=== PATIENT | male | born 1960 | race African-American/Black ===

== ENCOUNTER 2017-12-31 09:56 | Emergency (ER) | payer MEDICAID, OTHER ==
[~2017-12-31] VITALS: Ht 175.3 cm; Wt 91.0 kg
[~2017-12-31 09:56] MED LIST: CARI350T27 PO; ETAN50DI3 SQ; FOLI-43 PO; HYDR-3515 PO; HYDR200T PO; HYDR25TA PO; METH2.5T PO; OXYC30TA89 PO; PRED5TAB PO; SIMV20TA6 PO
[2017-12-31] MEDS ORDERED: ASPIRIN 81MG TABLET PO STA (11:17)
[2017-12-31] MEDS: NITROGLYCERIN 0.4MG TABLET SL SL PRN ×2 (11:33→11:37)
[2017-12-31 11:37] LABS: HEMATOCRIT. 42.3 % (42.0-52.0); HEMOGLOBIN. 14.3 g/dL (14.0-18.0); MEAN CORPUSCULAR HEMOGLOBIN 29.9 pg (28.0-32.0); MEAN CORPUSCULAR VOLUME 88.3 fL (80.0-94.0); MEAN PLATELET VOLUME 7.9 fl (7.4-10.4); PLATELET 198 x1000/uL (130-400); RED BLOOD CELL COUNT 4.78 mill/uL (4.7-6.1); RED CELL DISTRIBUTION WIDTH 13.2 % (11.6-14.6)
[2017-12-31] MEDS ORDERED: KETOROLAC 15MG/ML VIAL IV ONE (11:45)
[2017-12-31 11:46] LABS: CARBON DIOXIDE 27 mEq/L (21-32); CHLORIDE 103 mEq/L (98-107); D-DIMER 0.24 mg/L FEU (<0.50); PROTHROMBIN TIME 10.8 sec (9.4-11.6)
[2017-12-31 11:52] LABS: TROPONIN I < 0.02 ng/mL (0.00-0.04)
[2017-12-31 12:26] LABS: PLATELET ESTIMATE NORMAL
[2017-12-31 12:49] VITALS: BP 142/95
[2017-12-31] MEDS ORDERED: HYDROCODONE/ACETAMINOPHEN 5/325MG TABLET PO PRN (15:00)
[2017-12-31] MEDS ORDERED: IPRATROPIUM/ALBUTEROL 0.5-3(2.5)MG/3ML NEB HHN PRN (15:00)
[2017-12-31] MEDS ORDERED: AMLODIPINE 10MG TABLET PO SCH (15:00)
[2017-12-31] MEDS ORDERED: DEXTROSE 50% WATER 50ML SYRINGE IV PRN (15:00)
[2017-12-31] MEDS ORDERED: BLOOD SUGAR DIAGNOSTIC STRIP TEST SCH (17:00)
[2017-12-31] MEDS ORDERED: INSULIN LISPRO 100 UNITS/ML SUBCUT SCH (18:20)
[2017-12-31] MEDS ORDERED: ATORVASTATIN CALCIUM 20MG TABLET PO SCH (21:00)
[2018-01-01] MEDS ORDERED: ASPIRIN 81MG TABLET PO SCH (09:00)
== END 2017-12-31 15:29 | disposition left against medical advice (07) ==
LOC: ER 11:14 → EDBEDREQ 14:25 → CANRESERV 14:51 → ENRESERV 14:51 → ER 15:29 → CANBEDREQ 16:29
DX: R07.9 Chest pain, unspecified (principal); R07.89 Other chest pain; E11.9 Type 2 diabetes mellitus without complications; E78.00 Pure hypercholesterolemia, unspecified; I10 Essential (primary) hypertension; M06.9 Rheumatoid arthritis, unspecified; G47.30 Sleep apnea, unspecified; Z90.49 Acquired absence of other specified parts of digestive tract; Z88.5 Allergy status to narcotic agent
CPT/HCPCS: 36415; 71045; 80048; 83880; 84484; 85025; 85379; 85610; 85730; 87804; 93005; 96374; 99285; J1885; Z7610

== ENCOUNTER 2018-02-25 09:19 | Emergency (ER) | payer MEDICAID ==
[~2018-02-25] VITALS: Ht 175.3 cm; Wt 91.0 kg
[~2018-02-25 09:19] MED LIST changes: -HYDR200T PO; +HYDR200T80 PO
[2018-02-25] MEDS ORDERED: SODIUM CHLORIDE 0.9% 1,000 ML IV ONE (09:57)
[2018-02-25] MEDS ORDERED: INSULIN REGULAR (HUMULIN R) 300UNITS/3ML IV ONE (10:30)
[2018-02-25 10:37] LABS: HEMOGLOBIN. 14.1 g/dL (14.0-18.0); MEAN CORPUSCULAR HEMOGLOBIN 29.3 pg (28.0-32.0); MEAN CORPUSCULAR VOLUME 89.3 fL (80.0-94.0); MEAN PLATELET VOLUME 7.6 fl (7.4-10.4); PLATELET 210 x1000/uL (130-400); RED BLOOD CELL COUNT 4.82 mill/uL (4.7-6.1); RED CELL DISTRIBUTION WIDTH 13.5 % (11.6-14.6)
[2018-02-25 10:45] LABS: INR 1.1; PARTIAL THROMBOPLASTIN TIME 24.6 sec (23.4-31.0); PROTHROMBIN TIME 11.1 sec (9.4-11.6)
[2018-02-25] MEDS ORDERED: HYDROCODONE/ACETAMINOPHEN 5/325MG TABLET PO ONE (10:45)
[2018-02-25 10:47] LABS: CHLORIDE 102 mEq/L (98-107)
[2018-02-25 11:29] LABS: PLATELET ESTIMATE NORMAL
[2018-02-25 12:10] LABS: CLARITY URINE CLEAR (CLEAR); COLOR URINE YELLOW (YELLOW); KETONES URINE NEGATIVE (NEGATIVE); LEUKOCYTE ESTERASE URINE NEGATIVE (NEGATIVE); NITRITE URINE NEGATIVE (NEGATIVE); OCCULT BLOOD URINE NEGATIVE (NEGATIVE); PROTEIN URINE NEGATIVE (NEGATIVE); SPECIFIC GRAVITY URINE 1.032 (1.005-1.030); UROBILINOGEN URINE 0.2 E.U./dL (0.2-1.0)
[2018-02-25 13:16] VITALS: BP 141/81
[2018-02-26 11:47] LABS: *AMPHETAMINES SCREEN URINE NEGATIVE (NEGATIVE); *BARBITURATES SCREEN URINE NEGATIVE (NEGATIVE); *BENZODIAZEPINES SCREEN URINE NEGATIVE (NEGATIVE); *COCAINE SCREEN URINE NEGATIVE (NEGATIVE); CANNABINOID URINE SCREEN NEGATIVE (NEGATIVE); METHADONE URINE SCREEN NEGATIVE (NEGATIVE); OPIATES URINE SCREEN NEGATIVE (NEGATIVE); PHENCYCLIDINE URINE SCREEN NEGATIVE (NEGATIVE)
== END 2018-02-25 13:21 | disposition home or self-care (01) ==
LOC: ER 10:01
DX: E11.65 Type 2 diabetes mellitus with hyperglycemia (principal); I10 Essential (primary) hypertension; M54.9 Dorsalgia, unspecified; G89.29 Other chronic pain; E78.00 Pure hypercholesterolemia, unspecified; Z79.4 Long term (current) use of insulin; Z88.5 Allergy status to narcotic agent; R94.31 Abnormal electrocardiogram [ECG] [EKG]; I25.2 Old myocardial infarction
CPT/HCPCS: 36415; 80053; 80305; 81003; 82962; 83690; 85025; 85610; 85730; 93005; 96361; 96374; 99285; J1815; J7030; Z7610

== ENCOUNTER 2018-05-28 17:39 | Emergency (ER) | payer MEDICAID ==
[~2018-05-28] VITALS: Ht 175.3 cm; Wt 88.0 kg
[2018-05-28 18:55] LABS: BASOPHILS % 0.8 % (0.0-2.0); HEMATOCRIT. 41.8 % (42.0-52.0); HEMOGLOBIN. 13.9 g/dL (14.0-18.0); LYMPHOCYTES % 16.4 % (20.0-50.0); MEAN CORPUSCULAR HEMOGLOBIN 29.7 pg (28.0-32.0); MEAN PLATELET VOLUME 7.3 fl (7.4-10.4); MONOCYTES % 5.3 % (2.0-8.0); NEUTROPHILS % 77.5 % (40.0-76.0); PLATELET 238 x1000/uL (130-400); RED CELL DISTRIBUTION WIDTH 13.9 % (11.6-14.6)
[2018-05-28 19:00] LABS: CHLORIDE 105 mEq/L (98-107)
[2018-05-28 19:01] LABS: INR 1.1; PARTIAL THROMBOPLASTIN TIME 24.3 sec (23.4-31.0); PROTHROMBIN TIME 11.4 sec (9.4-11.6)
[2018-05-28] MEDS ORDERED: KETOROLAC 60MG/2ML VIAL IM ONE (22:00)
[2018-05-28] MEDS ORDERED: OXYCODONE HCL/ACETAMINOPHEN 5/325MG TABLET PO ONE (23:15)
[2018-05-28 23:24] VITALS: BP 156/93
== END 2018-05-28 23:37 | disposition home or self-care (01) ==
LOC: ER 17:39
DX: M54.12 Radiculopathy, cervical region (principal); R07.89 Other chest pain; I10 Essential (primary) hypertension; E11.9 Type 2 diabetes mellitus without complications; E78.00 Pure hypercholesterolemia, unspecified; Z88.5 Allergy status to narcotic agent
CPT/HCPCS: 36415; 71045; 72125; 80053; 82962; 83690; 84484; 85025; 85610; 85730; 93005; 96372; 99285; J1885

== ENCOUNTER 2018-11-28 11:01 | Emergency (ER) | payer MEDICAID ==
[~2018-11-28] VITALS: Ht 175.3 cm; Wt 91.0 kg
[2018-11-28] MEDS ORDERED: IBUPROFEN 600MG TABLET PO STA (12:19)
[2018-11-28 12:56] LABS: HEMATOCRIT. 44.7 % (42.0-52.0); MEAN CORPUSCULAR HEMOGLOBIN 29.8 pg (28.0-32.0); MEAN PLATELET VOLUME 7.8 fl (7.4-10.4); PLATELET 223 x1000/uL (130-400); RED BLOOD CELL COUNT 5.02 mill/uL (4.7-6.1); RED CELL DISTRIBUTION WIDTH 13.4 % (11.6-14.6)
[2018-11-28 13:00] LABS: CHLORIDE 103 mEq/L (98-107)
[2018-11-28 13:12] LABS: *AMPHETAMINES SCREEN URINE NEGATIVE (NEGATIVE); *BARBITURATES SCREEN URINE NEGATIVE (NEGATIVE); *BENZODIAZEPINES SCREEN URINE NEGATIVE (NEGATIVE); *COCAINE SCREEN URINE NEGATIVE (NEGATIVE); CANNABINOID URINE SCREEN NEGATIVE (NEGATIVE)
[2018-11-28 13:13] LABS: METHADONE URINE SCREEN NEGATIVE (NEGATIVE); OPIATES URINE SCREEN NEGATIVE (NEGATIVE); PHENCYCLIDINE URINE SCREEN NEGATIVE (NEGATIVE)
[2018-11-28 13:23] LABS: PLATELET ESTIMATE NORMAL
[2018-11-28] MEDS ORDERED: HYDROCODONE/ACETAMINOPHEN 5/325MG TABLET PO ONE (14:15)
[2018-11-28 15:10] VITALS: BP 140/90
== END 2018-11-28 15:15 | disposition home or self-care (01) ==
LOC: ER 11:01
DX: R07.9 Chest pain, unspecified (principal); M19.90 Unspecified osteoarthritis, unspecified site; E11.9 Type 2 diabetes mellitus without complications; E78.00 Pure hypercholesterolemia, unspecified; I10 Essential (primary) hypertension; Z90.89 Acquired absence of other organs; Z79.899 Other long term (current) drug therapy; Z88.5 Allergy status to narcotic agent
CPT/HCPCS: 36415; 71045; 80305; 84484; 93005; 99284

== ENCOUNTER 2020-04-26 03:32 | Emergency (ER) | payer MEDICAID ==
[~2020-04-26] VITALS: Ht 180.3 cm; Wt 107.0 kg
[~2020-04-26 03:32] MED LIST changes: +SIMV-43 PO; -SIMV20TA6 PO
[2020-04-26] MEDS ORDERED: KETOROLAC 60MG/2ML VIAL IM ONE (04:00)
[2020-04-26] MEDS ORDERED: PREDNISONE 20MG TABLET PO ONE (04:00)
[2020-04-26 05:35] VITALS: BP 144/75
== END 2020-04-26 05:36 | disposition home or self-care (01) ==
LOC: ER 03:32
DX: G89.29 Other chronic pain (principal); M54.9 Dorsalgia, unspecified; E11.9 Type 2 diabetes mellitus without complications; I10 Essential (primary) hypertension; E78.00 Pure hypercholesterolemia, unspecified; Z88.6 Allergy status to analgesic agent; Z79.899 Other long term (current) drug therapy; Z90.49 Acquired absence of other specified parts of digestive tract
CPT/HCPCS: 82962; 96372; 99283; J1885; J7512

== ENCOUNTER 2020-04-27 16:47 | Emergency (ER) | payer MEDICAID ==
[~2020-04-27] VITALS: Ht 175.3 cm; Wt 88.0 kg
[2020-04-27] MEDS ORDERED: SODIUM CHLORIDE 0.9% 1,000 ML IV ONE (18:05)
[2020-04-27] MEDS ORDERED: LORAZEPAM 1MG TABLET PO ONE (18:30)
[2020-04-27 18:46] LABS: CLARITY URINE CLEAR (CLEAR); COLOR URINE YELLOW (YELLOW); KETONES URINE TRACE (NEGATIVE); LEUKOCYTE ESTERASE URINE NEGATIVE (NEGATIVE); NITRITE URINE NEGATIVE (NEGATIVE); OCCULT BLOOD URINE NEGATIVE (NEGATIVE); PH URINE 5.5 (4.5-8.0); PROTEIN URINE TRACE (NEGATIVE); SPECIFIC GRAVITY URINE 1.023 (1.005-1.030); UROBILINOGEN URINE 0.2 E.U./dL (0.2-1.0)
[2020-04-27 19:03] LABS: METHADONE URINE SCREEN NEGATIVE (NEGATIVE); OPIATES URINE SCREEN NEGATIVE (NEGATIVE)
[2020-04-27 19:04] LABS: *AMPHETAMINES SCREEN URINE NEGATIVE (NEGATIVE); *BARBITURATES SCREEN URINE NEGATIVE (NEGATIVE); *BENZODIAZEPINES SCREEN URINE NEGATIVE (NEGATIVE); *COCAINE SCREEN URINE NEGATIVE (NEGATIVE); CANNABINOID URINE SCREEN NEGATIVE (NEGATIVE); PHENCYCLIDINE URINE SCREEN NEGATIVE (NEGATIVE)
[2020-04-27 19:17] LABS: BASOPHILS % 0.1 % (0.0-2.0); HEMATOCRIT. 45.9 % (42.0-52.0); HEMOGLOBIN. 15.1 g/dL (14.0-18.0); LYMPHOCYTES % 8.7 % (20.0-50.0); MEAN CORPUSCULAR HEMOGLOBIN 30.5 pg (28.0-32.0); MEAN CORPUSCULAR VOLUME 92.6 fL (80.0-94.0); MEAN PLATELET VOLUME 7.8 fl (7.4-10.4); MONOCYTES % 3.7 % (2.0-8.0); NEUTROPHILS % 87.5 % (40.0-76.0); PLATELET 166 x1000/uL (130-400); RED BLOOD CELL COUNT 4.96 mill/uL (4.7-6.1); RED CELL DISTRIBUTION WIDTH 14.3 % (11.6-14.6)
[2020-04-27 19:24] LABS: CHLORIDE 115 mEq/L (98-107)
[2020-04-27 19:28] LABS: ETHANOL BLOOD < 10 mg/dL
[2020-04-27 19:34] LABS: PROTHROMBIN TIME 10.9 sec (9.6-11.0)
[2020-04-27] MEDS ORDERED: FUROSEMIDE 40MG TABLET PO STA (19:40)
[2020-04-27] MEDS ORDERED: ONDANSETRON HCL 4MG/2ML INJ IV ONE (20:15)
[2020-04-27] MEDS ORDERED: MORPHINE SULFATE 4 MG/ML CPJ (NOT FOR IM USE) IV ONE (20:15)
[2020-04-27] MEDS ORDERED: DIPHENHYDRAMINE 25MG CAPSULE PO ONE (20:15)
[2020-04-27 21:56] VITALS: BP 154/98
== END 2020-04-27 21:59 | disposition home or self-care (01) ==
LOC: ER 16:47 → CANBEDREQ 22:48
DX: M54.5 Low back pain (principal); G89.29 Other chronic pain; E11.9 Type 2 diabetes mellitus without complications; I11.0 Hypertensive heart disease with heart failure; I50.9 Heart failure, unspecified; E78.00 Pure hypercholesterolemia, unspecified; G47.30 Sleep apnea, unspecified; M19.90 Unspecified osteoarthritis, unspecified site; Z88.5 Allergy status to narcotic agent; Z98.1 Arthrodesis status; Z90.49 Acquired absence of other specified parts of digestive tract
CPT/HCPCS: 36415; 71045; 80053; 80305; 80320; 81003; 83690; 83880; 84484; 85025; 85610; 85730; 93005; 96374; 96375; 99285; J2270; J2405; J7030; Q0163; G0480

== ENCOUNTER 2020-08-25 18:53 | Emergency (ER) | payer MEDICAID ==
[~2020-08-25] VITALS: Ht 175.3 cm; Wt 87.0 kg
[~2020-08-25 18:53] MED LIST changes: +CYAN500T47 PO; -HYDR25TA PO; +METF-816 PO; +ZOLP10TA2 PO
[2020-08-25 19:01] VITALS: BP 155/93
== END 2020-08-26 | disposition left against medical advice (07) ==
LOC: ER 18:53
DX: M54.9 Dorsalgia, unspecified (principal); I49.9 Cardiac arrhythmia, unspecified; Z53.21 Procedure and treatment not carried out due to patient leaving prior to being seen by health care provider
CPT/HCPCS: 93005

== ENCOUNTER 2020-09-03 15:57 | Inpatient (IN) | payer MEDICAID ==
[~2020-09-03] VITALS: Ht 175.3 cm; Wt 77.6 kg
[2020-09-03 16:55] LABS: HEMATOCRIT. 37.6 % (42.0-52.0); HEMOGLOBIN. 12.4 g/dL (14.0-18.0); MEAN CORPUSCULAR HEMOGLOBIN 31.2 pg (28.0-32.0); MEAN CORPUSCULAR VOLUME 94.4 fL (80.0-94.0); MEAN PLATELET VOLUME 8.6 fl (7.4-10.4); PLATELET 152 x1000/uL (130-400); RED BLOOD CELL COUNT 3.98 mill/uL (4.7-6.1)
[2020-09-03 17:01] LABS: CHLORIDE 109 mEq/L (98-107)
[2020-09-03 17:45] LABS: PLATELET ESTIMATE NORMAL
[2020-09-03] MEDS ORDERED: MORPHINE SULFATE 10 MG/ML CPJ IV NR (18:00)
[2020-09-03] MEDS ORDERED: DIPHENHYDRAMINE 50MG/ML VIAL IV NR (18:00)
[2020-09-03] MEDS ORDERED: POTASSIUM CHLORIDE 20MEQ TABLET SR PO NR (18:00)
[2020-09-03] MEDS ORDERED: FUROSEMIDE 40MG/4ML VIAL IVP NR (18:00)
[2020-09-03 22:30] VITALS: BP 154/86
[2020-09-03] MEDS ORDERED: ACETAMINOPHEN 325MG TABLET PO PRN (22:30)
[2020-09-03] MEDS ORDERED: DEXTROSE 50% WATER 50ML SYRINGE IV PRN ×3 (22:30)
[2020-09-04] VITALS: BP 141/86
[2020-09-04] MEDS: DIPHENHYDRAMINE 50MG/ML VIAL IV PRN ×2 (00:49→08:06)
[2020-09-04] MEDS: MORPHINE SULFATE 2 MG/ML CPJ (NOT FOR IM USE) IV PRN ×4 (00:54→21:00)
[2020-09-04 04:00] VITALS: BP 139/70
[2020-09-04 05:48] LABS: CHLORIDE 111 mEq/L (98-107)
[2020-09-04 05:58] LABS: CREATINE KINASE 93 IU/L (39-308)
[2020-09-04 05:59] LABS: CREATINE KINASE MB FRACTION 2.1 ng/mL (0.5-3.6)
[2020-09-04] MEDS: BLOOD SUGAR DIAGNOSTIC STRIP TEST SCH ×4 (06:06→21:04)
[2020-09-04] MEDS: INSULIN LISPRO 100 UNITS/ML SUBCUT SCH ×4 (06:08→21:04)
[2020-09-04 06:13] LABS: HEMOGLOBIN 13.2 g/dL (14.0-18.0); MEAN CORPUSCULAR HEMOGLOBIN 31.2 pg (28.0-32.0); MEAN CORPUSCULAR VOLUME 94.4 fL (80.0-94.0); PLATELET 147 x1000/uL (130-400); RED BLOOD CELL COUNT 4.24 mill/uL (4.7-6.1); RED CELL DISTRIBUTION WIDTH 14.2 % (11.6-14.6)
[2020-09-04 08:00] VITALS: BP 158/100
[2020-09-04] MEDS ORDERED: FUROSEMIDE 40MG/4ML VIAL IVP SCH (09:00)
[2020-09-04] MEDS ORDERED: PNEUMOC 13-VAL CONJ-DIP CRM/PF 0.5 ML DISP.SYRIN IM ONE (11:00)
[2020-09-04 12:00] VITALS: BP 158/100
[2020-09-04 16:00] VITALS: BP 150/99
[2020-09-04] MEDS ORDERED: POTASSIUM CHLORIDE 20MEQ TABLET SR PO NR (17:30)
[2020-09-04] MEDS ORDERED: POTASSIUM CHLORIDE INJ 40 MEQ in DEXT 5% WATER 250 ML IV NR (18:00)
[2020-09-04] MEDS: ASPIRIN 81MG EC TABLET PO SCH (18:06)
[2020-09-04] MEDS: PREDNISONE 20MG TABLET PO SCH (18:06)
[2020-09-04] MEDS: ENOXAPARIN 40MG/0.4ML SYR SUBCUT SCH (18:13)
[2020-09-04] MEDS: FUROSEMIDE 40MG/4ML VIAL IVP SCH (20:52)
[2020-09-04] MEDS: CARVEDILOL 6.25 MG TABLET PO SCH (20:57)
[2020-09-04 21:00] VITALS: BP 143/92
[2020-09-05] VITALS (7 sets, daily range): BP systolic 138–162; BP diastolic 80–109
[2020-09-05 02:09] LABS: *AMPHETAMINES SCREEN URINE NEGATIVE (NEGATIVE); *BARBITURATES SCREEN URINE NEGATIVE (NEGATIVE); *BENZODIAZEPINES SCREEN URINE NEGATIVE (NEGATIVE); *COCAINE SCREEN URINE NEGATIVE (NEGATIVE); CANNABINOID URINE SCREEN NEGATIVE (NEGATIVE); PHENCYCLIDINE URINE SCREEN NEGATIVE (NEGATIVE)
[2020-09-05 02:10] LABS: METHADONE URINE SCREEN NEGATIVE (NEGATIVE); OPIATES URINE SCREEN PRESUMTIVE POSITIVE (NEGATIVE)
[2020-09-05] MEDS: MORPHINE SULFATE 2 MG/ML CPJ (NOT FOR IM USE) IV PRN ×3 (02:52→20:58)
[2020-09-05 06:07] LABS: BASOPHILS % 0.1 % (0.0-2.0); HEMATOCRIT. 37.7 % (42.0-52.0); HEMOGLOBIN. 12.6 g/dL (14.0-18.0); LYMPHOCYTES % 8.4 % (20.0-50.0); MEAN CORPUSCULAR HEMOGLOBIN 31.3 pg (28.0-32.0); MEAN CORPUSCULAR VOLUME 93.2 fL (80.0-94.0); MEAN PLATELET VOLUME 8.9 fl (7.4-10.4); MONOCYTES % 4.1 % (2.0-8.0); NEUTROPHILS % 87.4 % (40.0-76.0); PLATELET 158 x1000/uL (130-400); RED BLOOD CELL COUNT 4.04 mill/uL (4.7-6.1); RED CELL DISTRIBUTION WIDTH 14.1 % (11.6-14.6)
[2020-09-05 06:09] LABS: CHLORIDE 106 mEq/L (98-107)
[2020-09-05] MEDS: BLOOD SUGAR DIAGNOSTIC STRIP TEST SCH ×4 (07:16→21:15)
[2020-09-05] MEDS: INSULIN LISPRO 100 UNITS/ML SUBCUT SCH ×4 (07:16→21:14)
[2020-09-05] MEDS: FUROSEMIDE 40MG/4ML VIAL IVP SCH ×2 (09:43→20:56)
[2020-09-05] MEDS: ASPIRIN 81MG EC TABLET PO SCH (09:59)
[2020-09-05] MEDS: CARVEDILOL 6.25 MG TABLET PO SCH ×2 (10:00→20:56)
[2020-09-05] MEDS: PREDNISONE 20MG TABLET PO SCH (10:00)
[2020-09-05] MEDS: LOSARTAN POTASSIUM 25 MG TABLET PO SCH (14:01)
[2020-09-05] MEDS ORDERED: OXYCODONE HCL 20MG TABLET SR 12HR PO PRN (14:15)
[2020-09-05] MEDS ORDERED: LACTULOSE 20G/30ML UDC PO PRN (14:15)
[2020-09-05] MEDS: ONDANSETRON HCL 4MG/2ML INJ IV PRN (14:24)
[2020-09-05] MEDS: OXYCODONE HCL 10MG TABLET SR 12HR PO SCH (14:25)
[2020-09-05] MEDS: ENOXAPARIN 40MG/0.4ML SYR SUBCUT SCH (17:23)
[2020-09-06] VITALS: BP 144/78
[2020-09-06] MEDS: OXYCODONE HCL 10MG TABLET SR 12HR PO SCH ×3 (00:35→21:00)
[2020-09-06] MEDS: ONDANSETRON HCL 4MG/2ML INJ IV PRN (00:38)
[2020-09-06 04:00] VITALS: BP 168/98
[2020-09-06] MEDS: BLOOD SUGAR DIAGNOSTIC STRIP TEST SCH ×4 (06:11→20:31)
[2020-09-06] MEDS: INSULIN LISPRO 100 UNITS/ML SUBCUT SCH ×5 (06:33→20:39)
[2020-09-06] MEDS: MORPHINE SULFATE 2 MG/ML CPJ (NOT FOR IM USE) IV PRN ×2 (06:59→20:13)
[2020-09-06 07:44] LABS: BASOPHILS % 0.2 % (0.0-2.0); EOSINOPHILS % 0.7 % (0.0-5.0); HEMOGLOBIN. 13.4 g/dL (14.0-18.0); LYMPHOCYTES % 18.1 % (20.0-50.0); MEAN CORPUSCULAR HEMOGLOBIN 31.1 pg (28.0-32.0); MEAN CORPUSCULAR VOLUME 92.9 fL (80.0-94.0); MEAN PLATELET VOLUME 8.6 fl (7.4-10.4); PLATELET 162 x1000/uL (130-400)
[2020-09-06 07:52] LABS: CHLORIDE 106 mEq/L (98-107)
[2020-09-06 08:30] VITALS: BP 157/97
[2020-09-06] MEDS: PREDNISONE 20MG TABLET PO SCH (09:23)
[2020-09-06] MEDS ORDERED: POTASSIUM CHLORIDE 20MEQ/PACKET PO SCH (09:24)
[2020-09-06] MEDS: CARVEDILOL 6.25 MG TABLET PO SCH ×2 (09:25→20:14)
[2020-09-06] MEDS: ASPIRIN 81MG EC TABLET PO SCH (09:26)
[2020-09-06] MEDS: LOSARTAN POTASSIUM 25 MG TABLET PO SCH (09:27)
[2020-09-06] MEDS: FUROSEMIDE 40MG/4ML VIAL IVP SCH ×3 (09:27→21:00)
[2020-09-06 12:00] VITALS: BP 148/92
[2020-09-06 16:04] VITALS: BP 156/95
[2020-09-06] MEDS: ENOXAPARIN 40MG/0.4ML SYR SUBCUT SCH (17:46)
[2020-09-06 20:00] VITALS: BP 159/98
[2020-09-06] MEDS ORDERED: CARVEDILOL 6.25 MG TABLET PO NR (21:26)
[2020-09-06] MEDS ORDERED: POTASSIUM CHLORIDE 20MEQ TABLET SR PO NR (21:34)
[2020-09-06] MEDS ORDERED: METOLAZONE 2.5MG TABLET PO NR (22:00)
[2020-09-07] VITALS: BP 153/102
[2020-09-07] MEDS: MORPHINE SULFATE 2 MG/ML CPJ (NOT FOR IM USE) IV PRN ×2 (01:26→06:02)
[2020-09-07 04:00] VITALS: BP 162/91
[2020-09-07 06:16] LABS: CHLORIDE 105 mEq/L (98-107)
[2020-09-07] MEDS: BLOOD SUGAR DIAGNOSTIC STRIP TEST SCH ×3 (07:30→13:37)
[2020-09-07] MEDS ORDERED: CARVEDILOL 12.5MG TABLET PO SCH ×2 (09:00→13:09)
[2020-09-07] MEDS: FUROSEMIDE 40MG/4ML VIAL IVP SCH (09:00)
[2020-09-07] MEDS ORDERED: LOSARTAN POTASSIUM 25 MG TABLET PO SCH ×2 (09:00→21:00)
[2020-09-07] MEDS: ASPIRIN 81MG EC TABLET PO SCH (10:00)
[2020-09-07] MEDS: PREDNISONE 20MG TABLET PO SCH (10:01)
[2020-09-07] MEDS: INSULIN LISPRO 100 UNITS/ML SUBCUT SCH ×2 (10:11→13:35)
[2020-09-07] MEDS: ONDANSETRON HCL 4MG/2ML INJ IV PRN (10:14)
[2020-09-07] MEDS: OXYCODONE HCL 10MG TABLET SR 12HR PO SCH ×2 (10:16→12:55)
[2020-09-07 10:54] VITALS: BP 167/109
[2020-09-07 12:00] VITALS: BP 141/93
[2020-09-07 13:05] VITALS: BP 141/93
[2020-09-07] MEDS ORDERED: COR12 PO (14:01)
[2020-09-07] MEDS ORDERED: LOSA50TA41 MT (14:01)
[2020-09-07] MEDS ORDERED: LOSA25TA3 PO (14:01)
[2020-09-07] MEDS ORDERED: CARV12.545 MT (14:01)
[2020-09-07 14:12] VITALS: BP 141/93
[2020-10-01] MEDS ORDERED: LOSA25TA26 PO (01:21)
[2020-10-01] MEDS ORDERED: FURO-151 PO (01:23)
[2020-10-02] MEDS ORDERED: BRIMONIDINE BOTHEYE (11:24)
== END 2020-09-07 14:35 | disposition home or self-care (01) | DRG 194 ==
LOC: ER 15:57 → 8WST 18:26 → ENRESERV 20:33 → 5EST 09-06 22:10
PROVIDERS: ADMIT Internal Medicine; ATTEND Internal Medicine
DX: I11.0 Hypertensive heart disease with heart failure (principal); I50.23 Acute on chronic systolic (congestive) heart failure; I42.9 Cardiomyopathy, unspecified; E78.5 Hyperlipidemia, unspecified; M48.02 Spinal stenosis, cervical region; E66.01 Morbid (severe) obesity due to excess calories; E78.00 Pure hypercholesterolemia, unspecified; M06.9 Rheumatoid arthritis, unspecified; G89.4 Chronic pain syndrome; F11.20 Opioid dependence, uncomplicated; E11.9 Type 2 diabetes mellitus without complications; D72.829 Elevated white blood cell count, unspecified; I36.1 Nonrheumatic tricuspid (valve) insufficiency; Z88.5 Allergy status to narcotic agent; Z79.899 Other long term (current) drug therapy; Z79.84 Long term (current) use of oral hypoglycemic drugs; Z90.49 Acquired absence of other specified parts of digestive tract; Z68.25 Body mass index [BMI] 25.0-25.9, adult; R07.89 Other chest pain; R65.10 Systemic inflammatory response syndrome (SIRS) of non-infectious origin without acute organ dysfunction
CPT/HCPCS: 36415; 71045; 80048; 80053; 80305; 82550; 82553; 82962; 83036; 83735; 83880; 84484; 85025; 85027; 90670; 93005; 97162; 99285; J1200; J1650; J1815; J1940; J2270; J2405; J3480; J7060; J7512

== ENCOUNTER 2020-11-19 21:54 | Emergency (ER) | payer MEDICAID ==
[~2020-11-19] VITALS: Ht 175.3 cm; Wt 100.0 kg
[~2020-11-19 21:54] MED LIST changes: +BRIMONIDINE BOTHEYE; +COR12 PO; -ETAN50DI3 SQ; +FURO-151 PO; +LOSA25TA26 PO; -METH2.5T PO
[2020-11-19] MEDS ORDERED: MORPHINE SULFATE 4 MG/ML CPJ (NOT FOR IM USE) IV STA (22:36)
[2020-11-19] MEDS ORDERED: FUROSEMIDE 40MG/4ML VIAL IVP ONE (22:45)
[2020-11-20 00:13] LABS: BASOPHILS % 0.4 % (0.0-2.0); HEMATOCRIT. 37.4 % (42.0-52.0); HEMOGLOBIN. 12.5 g/dL (14.0-18.0); LYMPHOCYTES % 7.5 % (20.0-50.0); MEAN CORPUSCULAR VOLUME 92.8 fL (80.0-94.0); MEAN PLATELET VOLUME 8.3 fl (7.4-10.4); MONOCYTES % 3.8 % (2.0-8.0); NEUTROPHILS % 88.3 % (40.0-76.0); PLATELET 195 x1000/uL (130-400); RED BLOOD CELL COUNT 4.02 mill/uL (4.7-6.1)
[2020-11-20 00:20] LABS: CHLORIDE 116 mEq/L (98-107)
[2020-11-20 03:00] VITALS: BP 163/99
[2020-11-20] MEDS ORDERED: ACETAMINOPHEN 325MG TABLET PO PRN ×2 (11:15)
[2020-11-20] MEDS ORDERED: CLONIDINE 0.1MG TABLET PO PRN (11:15)
[2020-11-20] MEDS ORDERED: ACETAMINOPHEN 650MG/20.3ML UDC GT PRN ×2 (11:15)
[2020-11-20] MEDS ORDERED: ONDANSETRON HCL 4MG/2ML INJ IV PRN (11:15)
[2020-11-20] MEDS ORDERED: ACETAMINOPHEN 650MG SUPP PR PRN ×2 (11:15)
[2020-11-20] MEDS ORDERED: FUROSEMIDE 40MG/4ML VIAL IV SCH (11:15)
[2020-11-20] MEDS ORDERED: DIPHENHYDRAMINE 50MG/ML VIAL IV PRN (11:15)
[2020-11-20] MEDS ORDERED: NA PHOS,M-B/NA PHOS,DI-BA ENEMA 118ML PR PRN (11:15)
[2020-11-20] MEDS ORDERED: MAGNESIUM/ALUMINUM HYDROXIDE/SIMETHICONE 30ML UDC PO PRN (11:15)
== END 2020-11-20 04:20 | disposition left against medical advice (07) ==
LOC: ER 22:22 → EDBEDREQ 11-20 02:25 → EDBEDREQTM 11-20 02:25 → EDBEDREQDT 11-20 02:25 → ER 11-20 04:20 → CMPBEDREQ 11-20 04:20
DX: I50.9 Heart failure, unspecified (principal); Z98.890 Other specified postprocedural states; Z79.899 Other long term (current) drug therapy
CPT/HCPCS: 36415; 71045; 80053; 83880; 84484; 85025; 93005; 96374; 96375; 99285; J1940; J2270

== ENCOUNTER 2021-03-02 17:18 | Inpatient (IN) | payer MEDICAID ==
[~2021-03-02] VITALS: Ht 175.3 cm; Wt 70.0 kg
[~2021-03-02 17:18] MED LIST changes: -METF-816 PO; +METF-874 PO; +OXYC-582 PO; -OXYC30TA89 PO
[2021-03-02] MEDS ORDERED: ASPIRIN 325MG EC TABLET PO ONE (17:30)
[2021-03-02 18:07] LABS: BASOPHILS % 0.8 % (0.0-2.0); EOSINOPHILS % 3.3 % (0.0-5.0); HEMATOCRIT. 35.4 % (42.0-52.0); HEMOGLOBIN. 11.2 g/dL (14.0-18.0); LYMPHOCYTES % 29.6 % (20.0-50.0); MEAN CORPUSCULAR HEMOGLOBIN 26.9 pg (28.0-32.0); MEAN CORPUSCULAR VOLUME 84.8 fL (80.0-94.0); MEAN PLATELET VOLUME 7.4 fl (7.4-10.4); MONOCYTES % 10.8 % (2.0-8.0); NEUTROPHILS % 55.5 % (40.0-76.0); PLATELET 314 x1000/uL (130-400); RED BLOOD CELL COUNT 4.18 mill/uL (4.7-6.1); RED CELL DISTRIBUTION WIDTH 15.7 % (11.6-14.6)
[2021-03-02 18:10] LABS: CHLORIDE 105 mEq/L (98-107)
[2021-03-02 19:27] LABS: CLARITY URINE CLEAR (CLEAR); COLOR URINE YELLOW (YELLOW); KETONES URINE TRACE (NEGATIVE); LEUKOCYTE ESTERASE URINE NEGATIVE (NEGATIVE); NITRITE URINE NEGATIVE (NEGATIVE); OCCULT BLOOD URINE NEGATIVE (NEGATIVE); PROTEIN URINE TRACE (NEGATIVE); SPECIFIC GRAVITY URINE 1.016 (1.005-1.030)
[2021-03-02] MEDS ORDERED: MORPHINE SULFATE 4 MG/ML CPJ (NOT FOR IM USE) IV STA (21:21)
[2021-03-02] MEDS ORDERED: ONDANSETRON HCL 4MG/2ML INJ IV STA (21:21)
[2021-03-02] MEDS ORDERED: FUROSEMIDE 40MG/4ML VIAL IVP NR (23:00)
[2021-03-02 23:52] VITALS: BP 100/67
[2021-03-03] VITALS (11 sets, daily range): BP systolic 96–140; BP diastolic 65–79
[2021-03-03] MEDS ORDERED: NITROGLYCERIN 0.4MG TABLET SL SL PRN (01:00)
[2021-03-03] MEDS ORDERED: DEXTROSE 50% WATER 50ML SYRINGE IV PRN (01:00)
[2021-03-03] MEDS: HYDROCODONE/ACETAMINOPHEN 10/325MG TABLET PO PRN (02:16)
[2021-03-03 02:29] LABS: CREATINE KINASE 63 IU/L (39-308)
[2021-03-03 02:30] LABS: CREATINE KINASE MB FRACTION 1.8 ng/mL (0.5-3.6)
[2021-03-03] MEDS: BLOOD SUGAR DIAGNOSTIC STRIP TEST SCH ×4 (06:04→20:49)
[2021-03-03 06:32] LABS: CHLORIDE 107 mEq/L (98-107)
[2021-03-03] MEDS: INSULIN LISPRO 100 UNITS/ML SUBCUT SCH ×4 (07:20→20:49)
[2021-03-03] MEDS: ENOXAPARIN 40MG/0.4ML SYR SUBCUT SCH (08:45)
[2021-03-03] MEDS: FUROSEMIDE 40MG TABLET PO SCH ×2 (08:45→16:37)
[2021-03-03 08:53] LABS: BASOPHILS % 0.4 % (0.0-2.0); EOSINOPHILS % 3.7 % (0.0-5.0); LYMPHOCYTES % 34.1 % (20.0-50.0); MEAN CORPUSCULAR HEMOGLOBIN 26.9 pg (28.0-32.0); MEAN CORPUSCULAR VOLUME 84.8 fL (80.0-94.0); MEAN PLATELET VOLUME 7.2 fl (7.4-10.4); MONOCYTES % 9.1 % (2.0-8.0); NEUTROPHILS % 52.7 % (40.0-76.0); PLATELET 354 x1000/uL (130-400); RED BLOOD CELL COUNT 4.48 mill/uL (4.7-6.1); RED CELL DISTRIBUTION WIDTH 15.3 % (11.6-14.6)
[2021-03-03] MEDS: HYDROMORPHONE HCL/PF 2MG/ML CPJ IV PRN ×2 (16:20→22:27)
[2021-03-03] MEDS: HYDROXYCHLOROQUINE SULFATE 200MG TABLET PO SCH (16:37)
[2021-03-03] MEDS ORDERED: CARVEDILOL 12.5MG TABLET PO SCH (17:00)
[2021-03-03] MEDS ORDERED: OXYCODONE HCL 30 MG PO SCH (17:00)
[2021-03-03] MEDS: CARVEDILOL 12.5MG TABLET PO SCH (20:45)
[2021-03-04] VITALS (10 sets, daily range): BP systolic 87–129; BP diastolic 48–75
[2021-03-04] MEDS: HYDROMORPHONE HCL/PF 2MG/ML CPJ IV PRN ×4 (04:30→23:12)
[2021-03-04] MEDS: CARVEDILOL 12.5MG TABLET PO SCH ×2 (06:00→16:30)
[2021-03-04] MEDS: BLOOD SUGAR DIAGNOSTIC STRIP TEST SCH ×4 (06:30→21:48)
[2021-03-04] MEDS: INSULIN LISPRO 100 UNITS/ML SUBCUT SCH ×4 (07:08→21:00)
[2021-03-04] MEDS: HYDROXYCHLOROQUINE SULFATE 200MG TABLET PO SCH ×2 (08:23→16:48)
[2021-03-04] MEDS: LOSARTAN POTASSIUM 25 MG TABLET PO SCH (08:23)
[2021-03-04] MEDS: ENOXAPARIN 40MG/0.4ML SYR SUBCUT SCH (08:24)
[2021-03-04] MEDS: FUROSEMIDE 40MG TABLET PO SCH ×2 (08:24→16:30)
[2021-03-04] MEDS ORDERED: MEDICATION NOT ON FORMULARY EA (Simvastatin 20 MG) PO SCH (09:00)
[2021-03-04] MEDS ORDERED: PREDNISONE 10MG TABLET PO SCH (09:00)
[2021-03-04] MEDS: TRIAMCINOLONE ACETONIDE 0.025% CREAM 15GM TOP SCH (21:48)
[2021-03-05] VITALS (10 sets, daily range): BP systolic 86–119; BP diastolic 52–69
[2021-03-05] MEDS: HYDROMORPHONE HCL/PF 2MG/ML CPJ IV PRN ×4 (05:15→22:59)
[2021-03-05] MEDS: BLOOD SUGAR DIAGNOSTIC STRIP TEST SCH ×4 (06:10→20:25)
[2021-03-05] MEDS: INSULIN LISPRO 100 UNITS/ML SUBCUT SCH ×4 (06:10→20:25)
[2021-03-05] MEDS: TRIAMCINOLONE ACETONIDE 0.025% CREAM 15GM TOP SCH ×2 (08:17→21:06)
[2021-03-05] MEDS: ENOXAPARIN 40MG/0.4ML SYR SUBCUT SCH (08:17)
[2021-03-05] MEDS: HYDROXYCHLOROQUINE SULFATE 200MG TABLET PO SCH ×2 (08:17→17:04)
[2021-03-05] MEDS: CARVEDILOL 12.5MG TABLET PO SCH (08:17)
[2021-03-05] MEDS: FUROSEMIDE 40MG TABLET PO SCH ×2 (08:17→17:00)
[2021-03-05] MEDS: ASPIRIN 81MG TABLET PO SCH (08:17)
[2021-03-05] MEDS: LOSARTAN POTASSIUM 25 MG TABLET PO SCH (09:00)
[2021-03-06] VITALS (9 sets, daily range): BP systolic 93–120; BP diastolic 53–70
[2021-03-06] MEDS: HYDROMORPHONE HCL/PF 2MG/ML CPJ IV PRN ×2 (05:44→11:59)
[2021-03-06] MEDS: CARVEDILOL 12.5MG TABLET PO SCH ×2 (05:51→18:01)
[2021-03-06] MEDS: INSULIN LISPRO 100 UNITS/ML SUBCUT SCH ×4 (07:12→20:52)
[2021-03-06] MEDS: BLOOD SUGAR DIAGNOSTIC STRIP TEST SCH ×4 (07:13→20:52)
[2021-03-06] MEDS: ASPIRIN 81MG TABLET PO SCH (08:21)
[2021-03-06] MEDS: FUROSEMIDE 40MG TABLET PO SCH ×2 (08:21→08:26)
[2021-03-06] MEDS: HYDROXYCHLOROQUINE SULFATE 200MG TABLET PO SCH ×2 (08:21→18:01)
[2021-03-06] MEDS: LOSARTAN POTASSIUM 25 MG TABLET PO SCH (08:21)
[2021-03-06] MEDS: TRIAMCINOLONE ACETONIDE 0.025% CREAM 15GM TOP SCH ×2 (08:22→08:27)
[2021-03-06] MEDS: ENOXAPARIN 40MG/0.4ML SYR SUBCUT SCH (08:22)
[2021-03-06] MEDS: HYDROCODONE/ACETAMINOPHEN 10/325MG TABLET PO PRN ×2 (14:19→20:49)
[2021-03-07] VITALS: BP 97/55
[2021-03-07 04:00] VITALS: BP 115/61
[2021-03-07] MEDS: HYDROCODONE/ACETAMINOPHEN 10/325MG TABLET PO PRN ×2 (04:00→10:59)
[2021-03-07] MEDS: CARVEDILOL 12.5MG TABLET PO SCH (05:32)
[2021-03-07] MEDS: BLOOD SUGAR DIAGNOSTIC STRIP TEST SCH ×2 (05:32→12:10)
[2021-03-07] MEDS: INSULIN LISPRO 100 UNITS/ML SUBCUT SCH ×2 (05:39→12:24)
[2021-03-07] MEDS: FUROSEMIDE 40MG TABLET PO SCH (09:00)
[2021-03-07] MEDS: LOSARTAN POTASSIUM 25 MG TABLET PO SCH (09:04)
[2021-03-07] MEDS: ENOXAPARIN 40MG/0.4ML SYR SUBCUT SCH (09:06)
[2021-03-07] MEDS: ASPIRIN 81MG TABLET PO SCH (09:08)
[2021-03-07] MEDS: HYDROXYCHLOROQUINE SULFATE 200MG TABLET PO SCH (09:09)
[2021-03-07] MEDS: TRIAMCINOLONE ACETONIDE 0.025% CREAM 15GM TOP SCH (09:11)
[2021-03-07] MEDS ORDERED: HYDROMORPHONE HCL/PF 2MG/ML CPJ IV NR (13:30)
[2021-03-07 15:00] VITALS: BP 104/60
[2021-03-07] MEDS ORDERED: LACTULOSE 20G/30ML UDC PO SCH (17:00)
== END 2021-03-07 16:50 | disposition home health service (06) | DRG 194 ==
LOC: ER 17:18 → 3WST 21:22 → EDBEDREQ 21:25 → ENRESERV 22:46 → 8WST 03-06 11:19
PROVIDERS: ADMIT Internal Medicine; ATTEND Internal Medicine
DX: I11.0 Hypertensive heart disease with heart failure (principal); G82.50 Quadriplegia, unspecified; N17.9 Acute kidney failure, unspecified; E11.65 Type 2 diabetes mellitus with hyperglycemia; E44.1 Mild protein-calorie malnutrition; D64.9 Anemia, unspecified; S31.801A Laceration without foreign body of unspecified buttock, initial encounter; E78.5 Hyperlipidemia, unspecified; I50.23 Acute on chronic systolic (congestive) heart failure; M54.9 Dorsalgia, unspecified; M06.9 Rheumatoid arthritis, unspecified; R25.2 Cramp and spasm; R26.9 Unspecified abnormalities of gait and mobility; F17.210 Nicotine dependence, cigarettes, uncomplicated; R07.89 Other chest pain; Z20.822 Contact with and (suspected) exposure to COVID-19; X58.XXXA Exposure to other specified factors, initial encounter; G89.4 Chronic pain syndrome; K59.00 Constipation, unspecified; I25.2 Old myocardial infarction; Z95.0 Presence of cardiac pacemaker; Z95.810 Presence of automatic (implantable) cardiac defibrillator; Z79.84 Long term (current) use of oral hypoglycemic drugs; Z79.899 Other long term (current) drug therapy; Z82.49 Family history of ischemic heart disease and other diseases of the circulatory system; Z56.0 Unemployment, unspecified; Y93.89 Activity, other specified; Y92.89 Other specified places as the place of occurrence of the external cause; Y99.8 Other external cause status
CPT/HCPCS: 36415; 71045; 72131; 80048; 80053; 81003; 82550; 82553; 82962; 83880; 84484; 85025; 87426; 93005; 93306; 97161; 99285; J1170; J1650; J2270; J2405

== ENCOUNTER 2021-07-16 19:32 | Emergency (ER) | payer MEDICAID ==
[~2021-07-16] VITALS: Ht 175.3 cm; Wt 76.0 kg
[2021-07-16 19:50] VITALS: BP 108/64
== END 2021-07-16 21:00 | disposition left against medical advice (07) ==
LOC: ER 19:32
DX: R07.89 Other chest pain (principal); Z53.21 Procedure and treatment not carried out due to patient leaving prior to being seen by health care provider
CPT/HCPCS: 93005

== ENCOUNTER 2022-06-13 12:50 | Inpatient (IN) | payer MEDICAID ==
[2022-06-13] VITALS (9 sets, daily range): BP systolic 87–101; BP diastolic 41–56
[~2022-06-13] VITALS: Ht 170.2 cm; Wt 92.1 kg
[2022-06-13] MEDS ORDERED: AMIODARONE HCL 150 MG in DEXT 5% WATER 100 ML IV ONE (13:15)
[2022-06-13] MEDS ORDERED: AMIODARONE HCL 150 MG in DEXT 5% WATER 100 ML IV NR (13:15)
[2022-06-13] MEDS ORDERED: AMIODARONE HCL 900 MG in DEXT 5% WATER 482 ML IV PRN ×4 (13:15)
[2022-06-13 13:19] LABS: BASOPHILS % 0.3 % (0.0-2.0); EOSINOPHILS % 0.2 % (0.0-5.0); HEMATOCRIT. 32.1 % (42.0-52.0); HEMOGLOBIN. 10.6 g/dL (14.0-18.0); LYMPHOCYTES % 16.5 % (20.0-50.0); MEAN CORPUSCULAR HEMOGLOBIN 29.2 pg (28.0-32.0); MEAN CORPUSCULAR VOLUME 88.2 fL (80.0-94.0); MEAN PLATELET VOLUME 7.2 fl (7.4-10.4); MONOCYTES % 2.1 % (2.0-8.0); NEUTROPHILS % 80.9 % (40.0-76.0); PLATELET 197 x1000/uL (130-400); RED BLOOD CELL COUNT 3.64 mill/uL (4.7-6.1); RED CELL DISTRIBUTION WIDTH 16.7 % (11.6-14.6)
[2022-06-13 13:31] LABS: CHLORIDE 105 mEq/L (98-107)
[2022-06-13 14:09] LABS: INR 1.1
[2022-06-13] MEDS ORDERED: ADENOSINE 3 MG/ML 2ML VIAL IV ONE (15:15)
[2022-06-13] MEDS ORDERED: FENTANYL CITRATE/PF 50MCG/ML 2ML VIAL IV SCH (15:45)
[2022-06-13] MEDS ORDERED: MIDAZOLAM HCL 2 MG/2 ML VIAL IV SCH (15:45)
[2022-06-13] MEDS ORDERED: SODIUM CHLORIDE 0.9% 500 ML IV NR (16:26)
[2022-06-13] MEDS ORDERED: DILTIAZEM HCL 5MG/ML 5ML VIAL IV PRN (16:27)
[2022-06-13 17:43] LABS: *AMPHETAMINES SCREEN URINE NEGATIVE (NEGATIVE); *BARBITURATES SCREEN URINE NEGATIVE (NEGATIVE); *BENZODIAZEPINES SCREEN URINE PRESUMTIVE POSITIVE (NEGATIVE); *COCAINE SCREEN URINE NEGATIVE (NEGATIVE); CANNABINOID URINE SCREEN NEGATIVE (NEGATIVE); METHADONE URINE SCREEN NEGATIVE (NEGATIVE); OPIATES URINE SCREEN PRESUMTIVE POSITIVE (NEGATIVE); PHENCYCLIDINE URINE SCREEN NEGATIVE (NEGATIVE)
[2022-06-13 17:43] LABS: ETHANOL BLOOD < 10 mg/dL
[2022-06-13] MEDS: METOPROLOL TARTRATE 25MG TABLET PO SCH (21:00)
[2022-06-13] MEDS ORDERED: DEXTROSE 50% WATER 50ML SYRINGE IV PRN (23:15)
[2022-06-14] VITALS (86 sets, daily range): BP systolic 78–115; BP diastolic 44–75
[2022-06-14] MEDS: PHENYLEPHRINE 100 MG in DEXT 5% WATER 240 ML IV PRN ×2 (00:36→10:29)
[2022-06-14 05:46] LABS: CHLORIDE 107 mEq/L (98-107)
[2022-06-14 05:48] LABS: INR 1.1; PARTIAL THROMBOPLASTIN TIME 35.9 sec (23.4-31.0); PROTHROMBIN TIME 11.9 sec (9.6-11.0)
[2022-06-14 05:53] LABS: BASOPHILS % 0.2 % (0.0-2.0); EOSINOPHILS % 0.2 % (0.0-5.0); HEMATOCRIT. 45.9 % (42.0-52.0); HEMOGLOBIN. 13.9 g/dL (14.0-18.0); MEAN CORPUSCULAR HEMOGLOBIN 28.3 pg (28.0-32.0); MEAN CORPUSCULAR VOLUME 93.3 fL (80.0-94.0); MEAN PLATELET VOLUME 7.2 fl (7.4-10.4); MONOCYTES % 5.3 % (2.0-8.0); NEUTROPHILS % 86.3 % (40.0-76.0); PLATELET 119 x1000/uL (130-400); RED BLOOD CELL COUNT 4.91 mill/uL (4.7-6.1); RED CELL DISTRIBUTION WIDTH 17.7 % (11.6-14.6)
[2022-06-14] MEDS: INSULIN LISPRO 100 UNITS/ML SUBCUT SCH ×4 (08:20→21:00)
[2022-06-14] MEDS: BLOOD SUGAR DIAGNOSTIC STRIP TEST SCH ×4 (08:29→21:11)
[2022-06-14] MEDS: METOPROLOL TARTRATE 25MG TABLET PO SCH ×2 (09:00→21:00)
[2022-06-14] MEDS: VISCOUS LIDOCAINE 2% 15 ML UDC MM PRN (09:10)
[2022-06-14] MEDS ORDERED: SODIUM CHLORIDE 0.9% 500 ML IV ONE (09:30)
[2022-06-14] MEDS: HYDROCODONE/ACETAMINOPHEN 10/325MG TABLET PO PRN ×3 (12:14→21:01)
[2022-06-14] MEDS ORDERED: NALOXONE HCL 0.4MG/ML VIAL IV PRN (17:30)
[2022-06-14] MEDS: ZOLPIDEM TARTRATE 5MG TABLET PO PRN (21:31)
[2022-06-15] VITALS (72 sets, daily range): BP systolic 78–150; BP diastolic 29–99
[2022-06-15] MEDS: PHENYLEPHRINE 100 MG in DEXT 5% WATER 240 ML IV PRN (05:29)
[2022-06-15] MEDS: BLOOD SUGAR DIAGNOSTIC STRIP TEST SCH ×4 (06:20→21:47)
[2022-06-15] MEDS: INSULIN LISPRO 100 UNITS/ML SUBCUT SCH ×4 (08:08→21:00)
[2022-06-15] MEDS: ASPIRIN 81MG TABLET PO SCH (09:45)
[2022-06-15] MEDS: METOPROLOL TARTRATE 25MG TABLET PO SCH ×2 (09:48→21:49)
[2022-06-15] MEDS: MIDODRINE HCL 5MG TABLET PO SCH ×3 (09:50→17:42)
[2022-06-15] MEDS: AMPICILLIN SOD/SULBACTAM NA 3 G in SODIUM CHLORIDE 0.9% 100 ML IV SCH ×2 (12:00→17:36)
[2022-06-15 13:47] LABS: CHLORIDE 105 mEq/L (98-107)
[2022-06-15 14:04] LABS: BASOPHILS % 0.2 % (0.0-2.0); EOSINOPHILS % 0.6 % (0.0-5.0); HEMATOCRIT. 30.9 % (42.0-52.0); HEMOGLOBIN. 10.2 g/dL (14.0-18.0); MEAN CORPUSCULAR HEMOGLOBIN 28.3 pg (28.0-32.0); MEAN CORPUSCULAR VOLUME 85.9 fL (80.0-94.0); MEAN PLATELET VOLUME 7.7 fl (7.4-10.4); NEUTROPHILS % 84.2 % (40.0-76.0); PLATELET 147 x1000/uL (130-400); RED CELL DISTRIBUTION WIDTH 16.7 % (11.6-14.6)
[2022-06-15 16:55] LABS: CLARITY URINE CLOUDY (CLEAR); COLOR URINE YELLOW (YELLOW); KETONES URINE 2+ (NEGATIVE); LEUKOCYTE ESTERASE URINE 2+ (NEGATIVE); NITRITE URINE POSITIVE (NEGATIVE); OCCULT BLOOD URINE NEGATIVE (NEGATIVE); PH URINE 5.5 (4.5-8.0); PROTEIN URINE 1+ (NEGATIVE); SPECIFIC GRAVITY URINE 1.018 (1.005-1.030)
[2022-06-16] VITALS (22 sets, daily range): BP systolic 103–127; BP diastolic 38–92
[2022-06-16] MEDS: AMPICILLIN SOD/SULBACTAM NA 3 G in SODIUM CHLORIDE 0.9% 100 ML IV SCH ×4 (00:20→18:36)
[2022-06-16 07:13] LABS: BASOPHILS % 0.2 % (0.0-2.0); EOSINOPHILS % 0.8 % (0.0-5.0); HEMATOCRIT. 32.8 % (42.0-52.0); HEMOGLOBIN. 10.8 g/dL (14.0-18.0); LYMPHOCYTES % 11.2 % (20.0-50.0); MEAN CORPUSCULAR HEMOGLOBIN 28.6 pg (28.0-32.0); MEAN CORPUSCULAR VOLUME 87.2 fL (80.0-94.0); MEAN PLATELET VOLUME 7.8 fl (7.4-10.4); MONOCYTES % 6.8 % (2.0-8.0); PLATELET 165 x1000/uL (130-400); RED BLOOD CELL COUNT 3.76 mill/uL (4.7-6.1); RED CELL DISTRIBUTION WIDTH 16.6 % (11.6-14.6)
[2022-06-16 07:29] LABS: CHLORIDE 107 mEq/L (98-107)
[2022-06-16] MEDS: BLOOD SUGAR DIAGNOSTIC STRIP TEST SCH ×4 (07:50→21:00)
[2022-06-16] MEDS: INSULIN LISPRO 100 UNITS/ML SUBCUT SCH ×4 (08:20→21:00)
[2022-06-16] MEDS: ASPIRIN 81MG TABLET PO SCH (09:16)
[2022-06-16] MEDS: METOPROLOL TARTRATE 25MG TABLET PO SCH ×2 (09:16→22:05)
[2022-06-16] MEDS: MIDODRINE HCL 5MG TABLET PO SCH ×3 (09:17→17:07)
[2022-06-16] MEDS: METRONIDAZOLE 500 MG PREMIX 100 ML IV SCH (23:58)
[2022-06-17] VITALS (35 sets, daily range): BP systolic 84–134; BP diastolic 21–97
[2022-06-17] MEDS: METRONIDAZOLE 500 MG PREMIX 100 ML IV SCH ×3 (06:24→21:31)
[2022-06-17] MEDS: AMPICILLIN SOD/SULBACTAM NA 3 G in SODIUM CHLORIDE 0.9% 100 ML IV SCH ×6 (06:26→23:40)
[2022-06-17] MEDS: BLOOD SUGAR DIAGNOSTIC STRIP TEST SCH ×4 (07:38→21:32)
[2022-06-17] MEDS: INSULIN LISPRO 100 UNITS/ML SUBCUT SCH ×4 (07:39→21:31)
[2022-06-17] MEDS: ASPIRIN 81MG TABLET PO SCH (08:43)
[2022-06-17] MEDS: MIDODRINE HCL 5MG TABLET PO SCH ×3 (08:43→16:49)
[2022-06-17] MEDS: METOPROLOL TARTRATE 25MG TABLET PO SCH ×2 (08:43→21:32)
[2022-06-17] MEDS: ACETAMINOPHEN 325MG TABLET PO PRN ×2 (08:45→16:49)
[2022-06-17] MEDS: DEXT 5%/0.9% NACL KCL 20MEQ/L 1,000 ML IV SCH ×3 (12:29→21:32)
[2022-06-17] MEDS ORDERED: DIGOXIN 500MCG/2ML AMP IV NR (18:15)
[2022-06-17] MEDS: HYDROCODONE/ACETAMINOPHEN 10/325MG TABLET PO PRN (19:56)
[2022-06-17] MEDS ORDERED: METOPROLOL TARTRATE 25MG TABLET PO SCH (21:00)
[2022-06-17] MEDS: ZOLPIDEM TARTRATE 5MG TABLET PO PRN (23:48)
[2022-06-18] VITALS (47 sets, daily range): BP systolic 69–160; BP diastolic 31–96
[2022-06-18 05:50] LABS: BASOPHILS % 0.2 % (0.0-2.0); EOSINOPHILS % 0.2 % (0.0-5.0); HEMATOCRIT. 30.9 % (42.0-52.0); HEMOGLOBIN. 10.2 g/dL (14.0-18.0); LYMPHOCYTES % 12.7 % (20.0-50.0); MEAN PLATELET VOLUME 7.7 fl (7.4-10.4); NEUTROPHILS % 79.9 % (40.0-76.0); PLATELET 153 x1000/uL (130-400); RED BLOOD CELL COUNT 3.51 mill/uL (4.7-6.1); RED CELL DISTRIBUTION WIDTH 16.7 % (11.6-14.6)
[2022-06-18 06:31] LABS: CHLORIDE 114 mEq/L (98-107)
[2022-06-18] MEDS ORDERED: LIDOCAINE HCL/PF 1% 10 MG/ML 5ML VIAL ONE (07:36)
[2022-06-18] MEDS: BLOOD SUGAR DIAGNOSTIC STRIP TEST SCH ×4 (07:50→21:00)
[2022-06-18] MEDS: INSULIN LISPRO 100 UNITS/ML SUBCUT SCH ×4 (08:20→21:15)
[2022-06-18] MEDS ORDERED: POTASSIUM CHLORIDE INJ 60 MEQ in DEXT 5% WATER 500 ML IV ONE (09:00)
[2022-06-18] MEDS: METOPROLOL TARTRATE 25MG TABLET PO SCH ×2 (09:14→21:00)
[2022-06-18] MEDS: DEXT 5%/0.9% NACL KCL 20MEQ/L 1,000 ML IV SCH ×2 (09:15→18:57)
[2022-06-18] MEDS: ASPIRIN 81MG TABLET PO SCH (09:15)
[2022-06-18] MEDS: MIDODRINE HCL 5MG TABLET PO SCH ×3 (09:15→17:39)
[2022-06-18] MEDS: AMPICILLIN SOD/SULBACTAM NA 3 G in SODIUM CHLORIDE 0.9% 100 ML IV SCH ×4 (09:16→23:55)
[2022-06-18] MEDS: METRONIDAZOLE 500 MG PREMIX 100 ML IV SCH (09:16)
[2022-06-18] MEDS ORDERED: DOPAMINE 400MG/250ML PREMIX 250 ML IV PRN (16:00)
[2022-06-18] MEDS: ACETAMINOPHEN 325MG TABLET PO PRN (20:47)
[2022-06-18] MEDS: PHENYLEPHRINE 100 MG in DEXT 5% WATER 240 ML IV PRN (20:57)
[2022-06-18] MEDS: HYDROCODONE/ACETAMINOPHEN 10/325MG TABLET PO PRN (21:32)
[2022-06-19] VITALS (72 sets, daily range): BP systolic 88–159; BP diastolic 32–98
[2022-06-19] MEDS: HYDROCODONE/ACETAMINOPHEN 10/325MG TABLET PO PRN ×3 (04:58→23:59)
[2022-06-19] MEDS: AMPICILLIN SOD/SULBACTAM NA 3 G in SODIUM CHLORIDE 0.9% 100 ML IV SCH ×3 (05:23→17:21)
[2022-06-19] MEDS: DEXT 5%/0.9% NACL KCL 20MEQ/L 1,000 ML IV SCH ×2 (06:19→15:18)
[2022-06-19 06:48] LABS: CHLORIDE 118 mEq/L (98-107)
[2022-06-19] MEDS: BLOOD SUGAR DIAGNOSTIC STRIP TEST SCH ×4 (08:03→20:12)
[2022-06-19] MEDS: ASPIRIN 81MG TABLET PO SCH (08:22)
[2022-06-19] MEDS: METOPROLOL TARTRATE 25MG TABLET PO SCH ×2 (08:22→20:10)
[2022-06-19] MEDS: MIDODRINE HCL 5MG TABLET PO SCH ×3 (08:23→17:00)
[2022-06-19] MEDS: INSULIN LISPRO 100 UNITS/ML SUBCUT SCH ×4 (08:23→20:12)
[2022-06-19] MEDS ORDERED: MIDODRINE HCL 5MG TABLET PO SCH (09:00)
[2022-06-19 18:37] LABS: TOTAL IRON BINDING CAPACITY 151 ug/dL (250-450)
[2022-06-19 19:11] LABS: VITAMIN B12 SERUM > 2000.0 pg/mL (211-911)
[2022-06-19 19:21] LABS: FERRITIN 1572 ng/mL (22-322)
[2022-06-19] MEDS: PANTOPRAZOLE SODIUM 40 MG/VIAL IV SCH (19:53)
[2022-06-20] VITALS (71 sets, daily range): BP systolic 76–145; BP diastolic 48–83
[2022-06-20] MEDS: AMPICILLIN SOD/SULBACTAM NA 3 G in SODIUM CHLORIDE 0.9% 100 ML IV SCH ×4 (05:22→12:40)
[2022-06-20] MEDS: HYDROCODONE/ACETAMINOPHEN 10/325MG TABLET PO PRN (05:23)
[2022-06-20 07:31] LABS: BASOPHILS % 0.2 % (0.0-2.0); EOSINOPHILS % 0.6 % (0.0-5.0); HEMATOCRIT. 27.6 % (42.0-52.0); HEMOGLOBIN. 8.9 g/dL (14.0-18.0); LYMPHOCYTES % 10.6 % (20.0-50.0); MEAN CORPUSCULAR HEMOGLOBIN 28.7 pg (28.0-32.0); MEAN CORPUSCULAR VOLUME 89.1 fL (80.0-94.0); MEAN PLATELET VOLUME 7.3 fl (7.4-10.4); MONOCYTES % 3.9 % (2.0-8.0); NEUTROPHILS % 84.7 % (40.0-76.0); PLATELET 130 x1000/uL (130-400); RED BLOOD CELL COUNT 3.09 mill/uL (4.7-6.1); RED CELL DISTRIBUTION WIDTH 17.6 % (11.6-14.6)
[2022-06-20 07:40] LABS: CHLORIDE 119 mEq/L (98-107)
[2022-06-20] MEDS: INSULIN LISPRO 100 UNITS/ML SUBCUT SCH ×4 (08:18→21:00)
[2022-06-20] MEDS: BLOOD SUGAR DIAGNOSTIC STRIP TEST SCH ×4 (08:18→21:15)
[2022-06-20] MEDS: ASPIRIN 81MG TABLET PO SCH (08:48)
[2022-06-20] MEDS: DEXT 5%/0.9% NACL KCL 20MEQ/L 1,000 ML IV SCH ×2 (08:48)
[2022-06-20] MEDS: PANTOPRAZOLE SODIUM 40 MG/VIAL IV SCH (08:49)
[2022-06-20] MEDS: MIDODRINE HCL 5MG TABLET PO SCH ×3 (08:49→17:00)
[2022-06-20] MEDS: METOPROLOL TARTRATE 25MG TABLET PO SCH ×2 (08:49→21:16)
[2022-06-20] MEDS: OXYCODONE HCL 5MG TABLET PO PRN ×3 (12:41→21:16)
[2022-06-20] MEDS: TAMSULOSIN HCL 0.4MG SR CAPSULE PO SCH (13:40)
[2022-06-20] MEDS: ENOXAPARIN 80MG/0.8ML SYR SUBCUT SCH ×2 (14:00→22:18)
[2022-06-20] MEDS: PHENYLEPHRINE 100 MG in DEXT 5% WATER 240 ML IV PRN (18:02)
[2022-06-21] VITALS (92 sets, daily range): BP systolic 85–143; BP diastolic 40–87
[2022-06-21] MEDS: DEXT 5%/0.9% NACL KCL 20MEQ/L 1,000 ML IV SCH ×3 (00:18→12:44)
[2022-06-21] MEDS: OXYCODONE HCL 5MG TABLET PO PRN (03:47)
[2022-06-21 05:44] LABS: BASOPHILS % 0.2 % (0.0-2.0); EOSINOPHILS % 0.3 % (0.0-5.0); HEMATOCRIT. 26.1 % (42.0-52.0); HEMOGLOBIN. 8.2 g/dL (14.0-18.0); LYMPHOCYTES % 12.6 % (20.0-50.0); MEAN CORPUSCULAR HEMOGLOBIN 28.4 pg (28.0-32.0); MEAN CORPUSCULAR VOLUME 90.2 fL (80.0-94.0); MEAN PLATELET VOLUME 7.4 fl (7.4-10.4); MONOCYTES % 4.5 % (2.0-8.0); NEUTROPHILS % 82.4 % (40.0-76.0); PLATELET 154 x1000/uL (130-400); RED BLOOD CELL COUNT 2.89 mill/uL (4.7-6.1); RED CELL DISTRIBUTION WIDTH 17.7 % (11.6-14.6)
[2022-06-21 06:03] LABS: INR 1.2; PROTHROMBIN TIME 12.8 sec (9.6-11.0)
[2022-06-21 06:22] LABS: CHLORIDE 120 mEq/L (98-107)
[2022-06-21] MEDS: BLOOD SUGAR DIAGNOSTIC STRIP TEST SCH ×4 (07:12→20:38)
[2022-06-21] MEDS: INSULIN LISPRO 100 UNITS/ML SUBCUT SCH ×4 (07:15→20:38)
[2022-06-21] MEDS: PANTOPRAZOLE SODIUM 40 MG/VIAL IV SCH (08:42)
[2022-06-21] MEDS: ENOXAPARIN 80MG/0.8ML SYR SUBCUT SCH ×2 (08:43→20:38)
[2022-06-21] MEDS: MIDODRINE HCL 5MG TABLET PO SCH ×3 (08:43→17:17)
[2022-06-21] MEDS: TAMSULOSIN HCL 0.4MG SR CAPSULE PO SCH (08:43)
[2022-06-21] MEDS: ASPIRIN 81MG TABLET PO SCH (08:43)
[2022-06-21] MEDS: OXYCODONE HCL 10MG TABLET SR 12HR PO SCH ×2 (08:44→20:37)
[2022-06-21] MEDS: METOPROLOL TARTRATE 25MG TABLET PO SCH ×2 (08:44→20:37)
[2022-06-21] MEDS ORDERED: OXYCODONE HCL 10MG TABLET SR 12HR PO SCH (09:00)
[2022-06-21] MEDS ORDERED: IOHEXOL-300 100 ML BOTTLE ONE (21:43)
[2022-06-22] VITALS (49 sets, daily range): BP systolic 83–162; BP diastolic 48–139
[2022-06-22] MEDS: DEXT 5%/0.9% NACL KCL 20MEQ/L 1,000 ML IV SCH (03:19)
[2022-06-22] MEDS: VISCOUS LIDOCAINE 2% 15 ML UDC MM PRN (05:58)
[2022-06-22] MEDS: BLOOD SUGAR DIAGNOSTIC STRIP TEST SCH ×4 (07:49→21:00)
[2022-06-22] MEDS: INSULIN LISPRO 100 UNITS/ML SUBCUT SCH ×4 (07:55→21:00)
[2022-06-22] MEDS: DEXT 5%/0.45% NACL 1000ML 1,000 ML IV SCH (09:13)
[2022-06-22] MEDS ORDERED: NALOXONE HCL 0.4MG/ML VIAL IV PRN (09:15)
[2022-06-22] MEDS: ACETAMINOPHEN 325MG TABLET PO PRN (09:20)
[2022-06-22] MEDS: ASPIRIN 81MG TABLET PO SCH (09:20)
[2022-06-22] MEDS: ENOXAPARIN 80MG/0.8ML SYR SUBCUT SCH ×2 (09:20→21:05)
[2022-06-22] MEDS: TAMSULOSIN HCL 0.4MG SR CAPSULE PO SCH (09:21)
[2022-06-22] MEDS: MIDODRINE HCL 5MG TABLET PO SCH ×3 (09:21→17:00)
[2022-06-22] MEDS: PANTOPRAZOLE SODIUM 40 MG/VIAL IV SCH (09:21)
[2022-06-22] MEDS: OXYCODONE HCL 10MG TABLET SR 12HR PO SCH ×2 (09:21→21:06)
[2022-06-22 14:44] LABS: CHLORIDE 119 mEq/L (98-107)
[2022-06-22 16:21] LABS: HEMATOCRIT. 30.3 % (42.0-52.0); HEMOGLOBIN. 9.6 g/dL (14.0-18.0); MEAN CORPUSCULAR HEMOGLOBIN 28.4 pg (28.0-32.0); MEAN CORPUSCULAR VOLUME 89.7 fL (80.0-94.0); MEAN PLATELET VOLUME 7.5 fl (7.4-10.4); PLATELET 169 x1000/uL (130-400); RED BLOOD CELL COUNT 3.37 mill/uL (4.7-6.1); RED CELL DISTRIBUTION WIDTH 17.7 % (11.6-14.6)
[2022-06-22 22:42] LABS: PLATELET ESTIMATE NORMAL
[2022-06-23] VITALS (49 sets, daily range): BP systolic 75–152; BP diastolic 47–139
[2022-06-23] MEDS: ACETAMINOPHEN 325MG TABLET PO PRN ×2 (00:17→20:24)
[2022-06-23] MEDS: KETOROLAC 15MG/ML VIAL IV PRN (01:28)
[2022-06-23] MEDS ORDERED: HALOPERIDOL LACTATE 5MG/ML VIAL IM NR (04:45)
[2022-06-23] MEDS: DEXT 5%/0.45% NACL 1000ML 1,000 ML IV SCH ×2 (05:13→07:30)
[2022-06-23 05:40] LABS: BASOPHILS % 0.3 % (0.0-2.0); EOSINOPHILS % 0.4 % (0.0-5.0); HEMATOCRIT. 24.6 % (42.0-52.0); HEMOGLOBIN. 7.8 g/dL (14.0-18.0); LYMPHOCYTES % 15.9 % (20.0-50.0); MEAN CORPUSCULAR HEMOGLOBIN 28.7 pg (28.0-32.0); MEAN CORPUSCULAR VOLUME 90.8 fL (80.0-94.0); MEAN PLATELET VOLUME 7.3 fl (7.4-10.4); MONOCYTES % 6.1 % (2.0-8.0); NEUTROPHILS % 77.3 % (40.0-76.0); PLATELET 175 x1000/uL (130-400); RED BLOOD CELL COUNT 2.71 mill/uL (4.7-6.1)
[2022-06-23 06:01] LABS: CHLORIDE 120 mEq/L (98-107)
[2022-06-23] MEDS: BLOOD SUGAR DIAGNOSTIC STRIP TEST SCH ×4 (08:00→20:21)
[2022-06-23] MEDS: INSULIN LISPRO 100 UNITS/ML SUBCUT SCH ×4 (08:00→20:21)
[2022-06-23] MEDS: TAMSULOSIN HCL 0.4MG SR CAPSULE PO SCH (08:52)
[2022-06-23] MEDS: ENOXAPARIN 80MG/0.8ML SYR SUBCUT SCH ×2 (08:52→20:20)
[2022-06-23] MEDS: OXYCODONE HCL 10MG TABLET SR 12HR PO SCH ×2 (08:53→20:20)
[2022-06-23] MEDS: MIDODRINE HCL 5MG TABLET PO SCH ×3 (08:53→16:32)
[2022-06-23] MEDS: ASPIRIN 81MG TABLET PO SCH (08:53)
[2022-06-23] MEDS: PANTOPRAZOLE SODIUM 40 MG/VIAL IV SCH (08:54)
[2022-06-23] MEDS: AMPICILLIN SOD/SULBACTAM NA 3 G in SODIUM CHLORIDE 0.9% 100 ML IV SCH (20:19)
[2022-06-23] MEDS: MIRTAZAPINE 15MG TABLET PO SCH (20:20)
[2022-06-24] MEDS: AMPICILLIN SOD/SULBACTAM NA 3 G in SODIUM CHLORIDE 0.9% 100 ML IV SCH ×4 (03:03→21:11)
[2022-06-24 04:00] VITALS: BP 120/91
[2022-06-24 06:35] LABS: BASOPHILS % 0.2 % (0.0-2.0); EOSINOPHILS % 0.6 % (0.0-5.0); HEMATOCRIT. 25.6 % (42.0-52.0); HEMOGLOBIN. 7.7 g/dL (14.0-18.0); LYMPHOCYTES % 19.5 % (20.0-50.0); MEAN CORPUSCULAR HEMOGLOBIN 28.5 pg (28.0-32.0); MEAN CORPUSCULAR VOLUME 94.2 fL (80.0-94.0); MEAN PLATELET VOLUME 7.3 fl (7.4-10.4); NEUTROPHILS % 74.7 % (40.0-76.0); PLATELET 202 x1000/uL (130-400); RED BLOOD CELL COUNT 2.72 mill/uL (4.7-6.1)
[2022-06-24] MEDS: BLOOD SUGAR DIAGNOSTIC STRIP TEST SCH ×4 (06:42→21:34)
[2022-06-24] MEDS: INSULIN LISPRO 100 UNITS/ML SUBCUT SCH ×4 (07:40→21:00)
[2022-06-24 08:00] VITALS: BP 132/87
[2022-06-24] MEDS: MIDODRINE HCL 5MG TABLET PO SCH ×3 (09:00→16:30)
[2022-06-24] MEDS: PANTOPRAZOLE SODIUM 40 MG/VIAL IV SCH (09:00)
[2022-06-24] MEDS: TAMSULOSIN HCL 0.4MG SR CAPSULE PO SCH ×2 (09:00→09:36)
[2022-06-24] MEDS: ASPIRIN 81MG TABLET PO SCH ×2 (09:00→09:35)
[2022-06-24] MEDS: OXYCODONE HCL 10MG TABLET SR 12HR PO SCH ×2 (09:37→21:33)
[2022-06-24] MEDS: ENOXAPARIN 80MG/0.8ML SYR SUBCUT SCH ×2 (09:38→21:35)
[2022-06-24] MEDS: ACETAMINOPHEN 325MG TABLET PO PRN ×2 (09:41→16:18)
[2022-06-24 12:00] VITALS: BP 103/58
[2022-06-24] MEDS: KETOROLAC 15MG/ML VIAL IV PRN (13:54)
[2022-06-24] MEDS ORDERED: VANCOMYCIN 1250MG in DEXTROSE 5% WATER 250ML IV NR (16:00)
[2022-06-24 20:00] VITALS: BP 133/73
[2022-06-24] MEDS: MIRTAZAPINE 15MG TABLET PO SCH (21:34)
[2022-06-24] MEDS: DEXT 5%/0.45% NACL 1000ML 1,000 ML IV SCH (21:35)
[2022-06-25] VITALS (11 sets, daily range): BP systolic 110–145; BP diastolic 61–84
[2022-06-25] MEDS: VANCOMYCIN 750MG PREMIX 150 ML IV SCH ×3 (00:43→16:12)
[2022-06-25] MEDS: AMPICILLIN SOD/SULBACTAM NA 3 G in SODIUM CHLORIDE 0.9% 100 ML IV SCH ×3 (03:40→13:47)
[2022-06-25] MEDS: ACETAMINOPHEN 325MG TABLET PO PRN ×2 (04:06→17:26)
[2022-06-25] MEDS: INSULIN LISPRO 100 UNITS/ML SUBCUT SCH ×4 (06:10→21:00)
[2022-06-25] MEDS: BLOOD SUGAR DIAGNOSTIC STRIP TEST SCH ×4 (06:10→21:40)
[2022-06-25 07:42] LABS: CHLORIDE 117 mEq/L (98-107)
[2022-06-25] MEDS ORDERED: LIDOCAINE HCL 1% 10 MG/ML 10ML VIAL ONE (07:55)
[2022-06-25] MEDS: MIDODRINE HCL 5MG TABLET PO SCH ×3 (08:34→16:25)
[2022-06-25 08:44] LABS: BASOPHILS % 0.1 % (0.0-2.0); EOSINOPHILS % 0.4 % (0.0-5.0); HEMOGLOBIN. 6.7 g/dL (14.0-18.0); LYMPHOCYTES % 14.4 % (20.0-50.0); MEAN CORPUSCULAR HEMOGLOBIN 28.2 pg (28.0-32.0); MEAN CORPUSCULAR VOLUME 87.2 fL (80.0-94.0); MEAN PLATELET VOLUME 6.9 fl (7.4-10.4); MONOCYTES % 4.9 % (2.0-8.0); NEUTROPHILS % 80.2 % (40.0-76.0); PLATELET 207 x1000/uL (130-400); RED BLOOD CELL COUNT 2.39 mill/uL (4.7-6.1); RED CELL DISTRIBUTION WIDTH 17.2 % (11.6-14.6)
[2022-06-25] MEDS: ENOXAPARIN 80MG/0.8ML SYR SUBCUT SCH (09:00)
[2022-06-25 09:13] LABS: HEMATOCRIT. 20.8 % (42.0-52.0)
[2022-06-25] MEDS: PANTOPRAZOLE SODIUM 40 MG/VIAL IV SCH (09:23)
[2022-06-25] MEDS: TAMSULOSIN HCL 0.4MG SR CAPSULE PO SCH (09:23)
[2022-06-25] MEDS: ASPIRIN 81MG TABLET PO SCH (09:23)
[2022-06-25] MEDS: OXYCODONE HCL 10MG TABLET SR 12HR PO SCH ×2 (09:24→21:38)
[2022-06-25] MEDS: MIRTAZAPINE 15MG TABLET PO SCH (21:38)
[2022-06-25] MEDS: MEROPENEM 1,000 MG in SODIUM CHLORIDE 0.9% 100 ML IV SCH (22:13)
[2022-06-26] VITALS: BP 149/88
[2022-06-26] MEDS: VANCOMYCIN 750MG PREMIX 150 ML IV SCH ×3 (01:10→16:32)
[2022-06-26] MEDS: ACETAMINOPHEN 325MG TABLET PO PRN (03:23)
[2022-06-26 04:00] VITALS: BP 124/69
[2022-06-26] MEDS: MEROPENEM 1,000 MG in SODIUM CHLORIDE 0.9% 100 ML IV SCH ×3 (06:34→21:13)
[2022-06-26] MEDS: INSULIN LISPRO 100 UNITS/ML SUBCUT SCH ×4 (06:43→21:00)
[2022-06-26] MEDS: BLOOD SUGAR DIAGNOSTIC STRIP TEST SCH ×4 (06:43→21:06)
[2022-06-26 08:00] VITALS: BP 150/70
[2022-06-26] MEDS: PANTOPRAZOLE SODIUM 40 MG/VIAL IV SCH (08:33)
[2022-06-26] MEDS: MIDODRINE HCL 5MG TABLET PO SCH ×3 (08:34→16:04)
[2022-06-26] MEDS: ASPIRIN 81MG TABLET PO SCH (08:34)
[2022-06-26] MEDS: TAMSULOSIN HCL 0.4MG SR CAPSULE PO SCH (08:34)
[2022-06-26] MEDS: OXYCODONE HCL 10MG TABLET SR 12HR PO SCH ×2 (08:35→21:08)
[2022-06-26 11:04] LABS: BASOPHILS % 0.2 % (0.0-2.0); EOSINOPHILS % 0.7 % (0.0-5.0); HEMATOCRIT. 27.2 % (42.0-52.0); LYMPHOCYTES % 14.6 % (20.0-50.0); MEAN CORPUSCULAR HEMOGLOBIN 28.5 pg (28.0-32.0); MEAN CORPUSCULAR VOLUME 86.4 fL (80.0-94.0); MEAN PLATELET VOLUME 7.2 fl (7.4-10.4); MONOCYTES % 5.2 % (2.0-8.0); NEUTROPHILS % 79.3 % (40.0-76.0); PLATELET 205 x1000/uL (130-400); RED BLOOD CELL COUNT 3.15 mill/uL (4.7-6.1); RED CELL DISTRIBUTION WIDTH 16.8 % (11.6-14.6)
[2022-06-26 11:15] LABS: CHLORIDE 117 mEq/L (98-107)
[2022-06-26 12:00] VITALS: BP 135/73
[2022-06-26] MEDS: DEXT 5%/0.45% NACL 1000ML 1,000 ML IV SCH (13:00)
[2022-06-26 15:44] VITALS: BP 131/62
[2022-06-26] MEDS ORDERED: POTASSIUM CHLORIDE 20MEQ/PACKET PO NR (16:00)
[2022-06-26 20:00] VITALS: BP 147/79
[2022-06-26] MEDS: MIRTAZAPINE 15MG TABLET PO SCH (21:07)
[2022-06-27] VITALS: BP 128/72
[2022-06-27] MEDS: VANCOMYCIN 750MG PREMIX 150 ML IV SCH ×3 (00:39→22:06)
[2022-06-27] MEDS: ACETAMINOPHEN 325MG TABLET PO PRN (00:39)
[2022-06-27 04:00] VITALS: BP 127/69
[2022-06-27 04:12] LABS: HIV SCREEN 4G Non Reactive (Non Reactive)
[2022-06-27 06:21] LABS: BASOPHILS % 0.4 % (0.0-2.0); EOSINOPHILS % 0.9 % (0.0-5.0); HEMATOCRIT. 33.8 % (42.0-52.0); HEMOGLOBIN. 10.7 g/dL (14.0-18.0); LYMPHOCYTES % 20.5 % (20.0-50.0); MEAN CORPUSCULAR HEMOGLOBIN 28.1 pg (28.0-32.0); MEAN CORPUSCULAR VOLUME 88.9 fL (80.0-94.0); MEAN PLATELET VOLUME 7.1 fl (7.4-10.4); MONOCYTES % 6.8 % (2.0-8.0); NEUTROPHILS % 71.4 % (40.0-76.0); PLATELET 222 x1000/uL (130-400); RED CELL DISTRIBUTION WIDTH 17.1 % (11.6-14.6)
[2022-06-27] MEDS: MEROPENEM 1,000 MG in SODIUM CHLORIDE 0.9% 100 ML IV SCH ×2 (06:28→13:20)
[2022-06-27 06:35] LABS: CHLORIDE 117 mEq/L (98-107)
[2022-06-27] MEDS: INSULIN LISPRO 100 UNITS/ML SUBCUT SCH ×4 (06:36→21:00)
[2022-06-27] MEDS: BLOOD SUGAR DIAGNOSTIC STRIP TEST SCH ×4 (06:36→21:59)
[2022-06-27 08:00] VITALS: BP 112/46
[2022-06-27] MEDS: PANTOPRAZOLE SODIUM 40 MG/VIAL IV SCH (08:58)
[2022-06-27] MEDS: ASPIRIN 81MG TABLET PO SCH (08:58)
[2022-06-27] MEDS: MIDODRINE HCL 5MG TABLET PO SCH ×3 (08:59→17:00)
[2022-06-27] MEDS: TAMSULOSIN HCL 0.4MG SR CAPSULE PO SCH (08:59)
[2022-06-27] MEDS: DEXT 5%/0.45% NACL 1000ML 1,000 ML IV SCH ×2 (09:01→22:06)
[2022-06-27] MEDS ORDERED: POTASSIUM CHLORIDE 20MEQ TABLET SR PO SCH (09:15)
[2022-06-27] MEDS ORDERED: HYDROMORPHONE HCL/PF 2MG/ML CPJ IV NR (11:15)
[2022-06-27 12:00] VITALS: BP 124/76
[2022-06-27] MEDS: OXYCODONE HCL 5MG TABLET PO PRN (15:40)
[2022-06-27 16:00] VITALS: BP 138/72
[2022-06-27 20:00] VITALS: BP 127/77
[2022-06-27] MEDS: MIRTAZAPINE 15MG TABLET PO SCH (22:06)
[2022-06-27] MEDS: HYDROCODONE/ACETAMINOPHEN 10/325MG TABLET PO PRN (22:08)
[2022-06-27] MEDS ORDERED: NALOXONE HCL 0.4MG/ML VIAL IV PRN (23:45)
[2022-06-28] VITALS: BP 98/63
[2022-06-28] MEDS: MEROPENEM 1,000 MG in SODIUM CHLORIDE 0.9% 100 ML IV SCH ×4 (00:22→23:12)
[2022-06-28] MEDS: HYDROCODONE/ACETAMINOPHEN 10/325MG TABLET PO PRN ×3 (02:23→23:14)
[2022-06-28 04:00] VITALS: BP 114/66
[2022-06-28] MEDS: ACETAMINOPHEN 325MG TABLET PO PRN (04:54)
[2022-06-28] MEDS: OXYCODONE HCL 5MG TABLET PO PRN (06:27)
[2022-06-28] MEDS: BLOOD SUGAR DIAGNOSTIC STRIP TEST SCH ×4 (06:42→21:00)
[2022-06-28] MEDS: INSULIN LISPRO 100 UNITS/ML SUBCUT SCH ×4 (06:43→21:00)
[2022-06-28 08:00] VITALS: BP 136/77
[2022-06-28] MEDS: PANTOPRAZOLE SODIUM 40 MG/VIAL IV SCH (08:56)
[2022-06-28] MEDS: ASPIRIN 81MG TABLET PO SCH (08:56)
[2022-06-28] MEDS: VANCOMYCIN 750MG PREMIX 150 ML IV SCH ×2 (08:56→23:13)
[2022-06-28] MEDS: TAMSULOSIN HCL 0.4MG SR CAPSULE PO SCH (08:57)
[2022-06-28] MEDS: MIDODRINE HCL 5MG TABLET PO SCH ×3 (08:57→16:24)
[2022-06-28 12:00] VITALS: BP 133/76
[2022-06-28 16:00] VITALS: BP 152/73
[2022-06-28] MEDS: MIRTAZAPINE 15MG TABLET PO SCH (23:12)
[2022-06-29] VITALS: BP 139/80
[2022-06-29] MEDS: DEXT 5%/0.45% NACL 1000ML 1,000 ML IV SCH ×2 (03:10→21:00)
[2022-06-29] MEDS: MEROPENEM 1,000 MG in SODIUM CHLORIDE 0.9% 100 ML IV SCH ×3 (06:22→22:47)
[2022-06-29] MEDS: HYDROCODONE/ACETAMINOPHEN 10/325MG TABLET PO PRN ×2 (06:23→22:57)
[2022-06-29] MEDS: BLOOD SUGAR DIAGNOSTIC STRIP TEST SCH ×4 (06:32→22:46)
[2022-06-29] MEDS: INSULIN LISPRO 100 UNITS/ML SUBCUT SCH ×4 (06:34→22:45)
[2022-06-29 06:41] LABS: BASOPHILS % 0.4 % (0.0-2.0); EOSINOPHILS % 1.2 % (0.0-5.0); HEMATOCRIT. 27.8 % (42.0-52.0); MEAN CORPUSCULAR HEMOGLOBIN 28.2 pg (28.0-32.0); MEAN CORPUSCULAR VOLUME 86.8 fL (80.0-94.0); MEAN PLATELET VOLUME 6.5 fl (7.4-10.4); MONOCYTES % 9.5 % (2.0-8.0); NEUTROPHILS % 61.9 % (40.0-76.0); PLATELET 242 x1000/uL (130-400); RED BLOOD CELL COUNT 3.21 mill/uL (4.7-6.1); RED CELL DISTRIBUTION WIDTH 16.7 % (11.6-14.6)
[2022-06-29 06:52] LABS: CHLORIDE 117 mEq/L (98-107)
[2022-06-29] MEDS: OXYCODONE HCL 5MG TABLET PO PRN (07:53)
[2022-06-29 08:00] VITALS: BP 144/75
[2022-06-29] MEDS: ASPIRIN 81MG TABLET PO SCH (08:02)
[2022-06-29] MEDS: PANTOPRAZOLE SODIUM 40 MG/VIAL IV SCH (08:02)
[2022-06-29] MEDS: TAMSULOSIN HCL 0.4MG SR CAPSULE PO SCH (08:03)
[2022-06-29] MEDS: MIDODRINE HCL 5MG TABLET PO SCH ×3 (08:03→16:40)
[2022-06-29] MEDS: VANCOMYCIN 750MG PREMIX 150 ML IV SCH (08:03)
[2022-06-29 12:00] VITALS: BP 155/69
[2022-06-29] MEDS: KCL 20MEQ/100ML PREMIX 100 ML IV SCH ×2 (12:00→14:00)
[2022-06-29 16:00] VITALS: BP 139/77
[2022-06-29] MEDS ORDERED: POTASSIUM CHLORIDE 20MEQ TABLET SR PO NR (17:52)
[2022-06-29] MEDS ORDERED: KCL 20MEQ/100ML PREMIX 100 ML IV SCH (18:00)
[2022-06-29 20:00] VITALS: BP 106/65
[2022-06-29] MEDS: MIRTAZAPINE 15MG TABLET PO SCH (22:45)
[2022-06-30 01:00] VITALS: BP 128/78
[2022-06-30 05:00] VITALS: BP 136/73
[2022-06-30] MEDS: HYDROCODONE/ACETAMINOPHEN 10/325MG TABLET PO PRN (05:24)
[2022-06-30] MEDS: MEROPENEM 1,000 MG in SODIUM CHLORIDE 0.9% 100 ML IV SCH ×3 (05:35→21:00)
[2022-06-30] MEDS: VANCOMYCIN 1GM PMX (XELLIA) 200 ML IV SCH ×2 (05:35→22:14)
[2022-06-30] MEDS: BLOOD SUGAR DIAGNOSTIC STRIP TEST SCH ×4 (07:13→21:00)
[2022-06-30] MEDS: INSULIN LISPRO 100 UNITS/ML SUBCUT SCH ×4 (07:13→21:00)
[2022-06-30 08:00] VITALS: BP 137/78
[2022-06-30] MEDS: MIDODRINE HCL 5MG TABLET PO SCH ×3 (08:34→16:47)
[2022-06-30] MEDS: ASPIRIN 81MG TABLET PO SCH (08:35)
[2022-06-30] MEDS: PANTOPRAZOLE SODIUM 40 MG/VIAL IV SCH (08:35)
[2022-06-30] MEDS: TAMSULOSIN HCL 0.4MG SR CAPSULE PO SCH (08:35)
[2022-06-30 12:00] VITALS: BP 119/74
[2022-06-30] MEDS ORDERED: INSULIN GLARGINE 100 UNITS/ML SUBCUT ONE (12:45)
[2022-06-30] MEDS: DEXT 5%/0.45% NACL 1000ML 1,000 ML IV SCH (16:47)
[2022-06-30] MEDS: OXYCODONE HCL 5MG TABLET PO PRN (17:15)
[2022-06-30 20:00] VITALS: BP 138/75
[2022-06-30] MEDS: MIRTAZAPINE 15MG TABLET PO SCH (21:00)
[2022-06-30] MEDS: KETOROLAC 15MG/ML VIAL IV PRN (22:07)
[2022-06-30] MEDS ORDERED: MORPHINE SULFATE 2 MG/ML CPJ (NOT FOR IM USE) IV NR (23:15)
[2022-07-01] VITALS: BP 133/63
[2022-07-01] MEDS ORDERED: DIPHENHYDRAMINE 50MG/ML VIAL IV PRN
[2022-07-01 04:00] VITALS: BP 136/81
[2022-07-01] MEDS: MEROPENEM 1,000 MG in SODIUM CHLORIDE 0.9% 100 ML IV SCH ×3 (05:09→22:50)
[2022-07-01] MEDS: KETOROLAC 15MG/ML VIAL IV PRN (05:18)
[2022-07-01] MEDS: INSULIN LISPRO 100 UNITS/ML SUBCUT SCH ×4 (06:01→21:00)
[2022-07-01] MEDS: BLOOD SUGAR DIAGNOSTIC STRIP TEST SCH ×4 (06:01→21:00)
[2022-07-01 08:00] VITALS: BP 150/82
[2022-07-01] MEDS: MIDODRINE HCL 5MG TABLET PO SCH ×3 (08:02→15:54)
[2022-07-01] MEDS: ASPIRIN 81MG TABLET PO SCH (08:25)
[2022-07-01] MEDS: TAMSULOSIN HCL 0.4MG SR CAPSULE PO SCH (08:26)
[2022-07-01] MEDS: PANTOPRAZOLE SODIUM 40 MG/VIAL IV SCH (08:26)
[2022-07-01] MEDS ORDERED: METHOCARBAMOL 500MG TABLET PO PRN (09:00)
[2022-07-01 12:00] VITALS: BP 135/71
[2022-07-01] MEDS: DEXT 5%/0.45% NACL 1000ML 1,000 ML IV SCH (12:34)
[2022-07-01] MEDS: OXYCODONE HCL 5MG TABLET PO PRN ×2 (13:23→18:08)
[2022-07-01] MEDS: GABAPENTIN 300MG CAPSULE PO SCH ×2 (13:23→22:50)
[2022-07-01 15:49] VITALS: BP 150/53
[2022-07-01] MEDS: VANCOMYCIN 1GM PMX (XELLIA) 200 ML IV SCH (16:16)
[2022-07-01 20:00] VITALS: BP 109/73
[2022-07-01] MEDS: MIRTAZAPINE 15MG TABLET PO SCH (22:49)
[2022-07-02] VITALS: BP 139/80
[2022-07-02 04:00] VITALS: BP 122/69
[2022-07-02] MEDS: GABAPENTIN 300MG CAPSULE PO SCH ×3 (05:22→23:08)
[2022-07-02] MEDS: OXYCODONE HCL 5MG TABLET PO PRN ×3 (05:22→18:04)
[2022-07-02] MEDS: MEROPENEM 1,000 MG in SODIUM CHLORIDE 0.9% 100 ML IV SCH ×3 (05:23→23:08)
[2022-07-02] MEDS: INSULIN LISPRO 100 UNITS/ML SUBCUT SCH ×4 (06:58→21:00)
[2022-07-02] MEDS: BLOOD SUGAR DIAGNOSTIC STRIP TEST SCH ×4 (06:58→21:51)
[2022-07-02 08:00] VITALS: BP 134/94
[2022-07-02] MEDS: TAMSULOSIN HCL 0.4MG SR CAPSULE PO SCH (08:37)
[2022-07-02] MEDS: DEXT 5%/0.45% NACL 1000ML 1,000 ML IV SCH (08:37)
[2022-07-02] MEDS: MIDODRINE HCL 5MG TABLET PO SCH ×3 (08:37→16:24)
[2022-07-02] MEDS: ASPIRIN 81MG TABLET PO SCH (08:37)
[2022-07-02] MEDS: PANTOPRAZOLE SODIUM 40 MG/VIAL IV SCH (08:37)
[2022-07-02] MEDS: VANCOMYCIN 1GM PMX (XELLIA) 200 ML IV SCH (11:07)
[2022-07-02 12:00] VITALS: BP 132/63
[2022-07-02 16:00] VITALS: BP 144/78
[2022-07-02] MEDS: ACETAMINOPHEN 325MG TABLET PO PRN (16:24)
[2022-07-02 20:00] VITALS: BP 130/82
[2022-07-02] MEDS: MIRTAZAPINE 15MG TABLET PO SCH (23:08)
[2022-07-03] VITALS: BP 129/80
[2022-07-03] MEDS: OXYCODONE HCL 5MG TABLET PO PRN ×2 (03:43→17:04)
[2022-07-03] MEDS: DEXT 5%/0.45% NACL 1000ML 1,000 ML IV SCH (03:59)
[2022-07-03 04:00] VITALS: BP 116/71
[2022-07-03] MEDS: VANCOMYCIN 1GM PMX (XELLIA) 200 ML IV SCH ×2 (04:10→23:00)
[2022-07-03] MEDS: BLOOD SUGAR DIAGNOSTIC STRIP TEST SCH ×4 (06:23→21:00)
[2022-07-03] MEDS: GABAPENTIN 300MG CAPSULE PO SCH ×3 (06:27→22:23)
[2022-07-03] MEDS: MEROPENEM 1,000 MG in SODIUM CHLORIDE 0.9% 100 ML IV SCH ×3 (06:27→22:00)
[2022-07-03] MEDS: HYDROCODONE/ACETAMINOPHEN 10/325MG TABLET PO PRN (06:34)
[2022-07-03] MEDS: INSULIN LISPRO 100 UNITS/ML SUBCUT SCH ×4 (06:59→21:00)
[2022-07-03 08:00] VITALS: BP 110/68
[2022-07-03] MEDS: PANTOPRAZOLE SODIUM 40 MG/VIAL IV SCH (08:19)
[2022-07-03] MEDS: TAMSULOSIN HCL 0.4MG SR CAPSULE PO SCH (08:19)
[2022-07-03] MEDS: ASPIRIN 81MG TABLET PO SCH (08:19)
[2022-07-03] MEDS: MIDODRINE HCL 5MG TABLET PO SCH ×3 (08:20→17:04)
[2022-07-03 12:00] VITALS: BP 108/72
[2022-07-03 15:59] VITALS: BP 118/63
[2022-07-03 20:00] VITALS: BP 116/60
[2022-07-03] MEDS ORDERED: NALOXONE HCL 0.4MG/ML VIAL IV PRN (22:00)
[2022-07-03] MEDS: MIRTAZAPINE 15MG TABLET PO SCH (22:23)
[2022-07-04] VITALS: BP 118/72
[2022-07-04] MEDS: MEROPENEM 1,000 MG in SODIUM CHLORIDE 0.9% 100 ML IV SCH ×4 (00:23→21:29)
[2022-07-04] MEDS: VANCOMYCIN 1GM PMX (XELLIA) 200 ML IV SCH (00:24)
[2022-07-04] MEDS: DEXT 5%/0.45% NACL 1000ML 1,000 ML IV SCH ×2 (01:13→21:30)
[2022-07-04 04:00] VITALS: BP 114/57
[2022-07-04] MEDS: INSULIN LISPRO 100 UNITS/ML SUBCUT SCH ×4 (06:28→21:00)
[2022-07-04] MEDS: GABAPENTIN 300MG CAPSULE PO SCH ×3 (06:28→21:29)
[2022-07-04] MEDS: BLOOD SUGAR DIAGNOSTIC STRIP TEST SCH ×4 (06:28→21:18)
[2022-07-04 08:00] VITALS: BP 112/65
[2022-07-04] MEDS: PANTOPRAZOLE SODIUM 40 MG/VIAL IV SCH (08:14)
[2022-07-04] MEDS: MIDODRINE HCL 5MG TABLET PO SCH ×3 (08:14→16:20)
[2022-07-04] MEDS: TAMSULOSIN HCL 0.4MG SR CAPSULE PO SCH (08:14)
[2022-07-04] MEDS: ASPIRIN 81MG TABLET PO SCH (08:14)
[2022-07-04] MEDS: ENOXAPARIN 80MG/0.8ML SYR SUBCUT SCH ×2 (08:18→21:29)
[2022-07-04 12:00] VITALS: BP 100/61
[2022-07-04] MEDS: OXYCODONE HCL 5MG TABLET PO PRN (13:28)
[2022-07-04 15:56] VITALS: BP 115/61
[2022-07-04] MEDS ORDERED: DAPTOMYCIN 450 MG in SODIUM CHLORIDE 0.9% 50 ML IV SCH (17:00)
[2022-07-04 20:00] VITALS: BP 112/62
[2022-07-04] MEDS: MIRTAZAPINE 15MG TABLET PO SCH (21:29)
[2022-07-05] VITALS: BP 114/83
[2022-07-05 04:00] VITALS: BP 101/64
[2022-07-05] MEDS: INSULIN LISPRO 100 UNITS/ML SUBCUT SCH ×4 (04:39→20:43)
[2022-07-05] MEDS: BLOOD SUGAR DIAGNOSTIC STRIP TEST SCH ×4 (04:39→20:43)
[2022-07-05] MEDS: MEROPENEM 1,000 MG in SODIUM CHLORIDE 0.9% 100 ML IV SCH ×3 (04:40→20:45)
[2022-07-05] MEDS: GABAPENTIN 300MG CAPSULE PO SCH ×3 (04:43→20:45)
[2022-07-05] MEDS ORDERED: LIDOCAINE HCL 1% 10 MG/ML 10ML VIAL ONE (07:10)
[2022-07-05 08:00] VITALS: BP 108/75
[2022-07-05] MEDS: PANTOPRAZOLE SODIUM 40 MG/VIAL IV SCH (09:13)
[2022-07-05] MEDS: ASPIRIN 81MG TABLET PO SCH (09:14)
[2022-07-05] MEDS: TAMSULOSIN HCL 0.4MG SR CAPSULE PO SCH (09:14)
[2022-07-05] MEDS: MIDODRINE HCL 5MG TABLET PO SCH ×3 (09:14→17:04)
[2022-07-05] MEDS: ENOXAPARIN 80MG/0.8ML SYR SUBCUT SCH (09:15)
[2022-07-05] MEDS: OXYCODONE HCL 5MG TABLET PO PRN ×2 (09:16→17:05)
[2022-07-05 10:38] LABS: BASOPHILS % 0.6 % (0.0-2.0); EOSINOPHILS % 2.3 % (0.0-5.0); HEMATOCRIT. 24.1 % (42.0-52.0); HEMOGLOBIN. 7.8 g/dL (14.0-18.0); LYMPHOCYTES % 24.2 % (20.0-50.0); MEAN CORPUSCULAR HEMOGLOBIN 27.5 pg (28.0-32.0); MEAN CORPUSCULAR VOLUME 85.1 fL (80.0-94.0); MEAN PLATELET VOLUME 6.9 fl (7.4-10.4); MONOCYTES % 8.8 % (2.0-8.0); NEUTROPHILS % 64.1 % (40.0-76.0); PLATELET 385 x1000/uL (130-400); RED BLOOD CELL COUNT 2.84 mill/uL (4.7-6.1); RED CELL DISTRIBUTION WIDTH 16.6 % (11.6-14.6)
[2022-07-05 12:00] VITALS: BP 119/68
[2022-07-05] MEDS: HYDROCODONE/ACETAMINOPHEN 10/325MG TABLET PO PRN (13:32)
[2022-07-05 14:25] LABS: CHLORIDE 113 mEq/L (98-107)
[2022-07-05 16:00] VITALS: BP 109/62
[2022-07-05] MEDS ORDERED: POTASSIUM CHLORIDE 20MEQ TABLET SR PO NR (16:30)
[2022-07-05] MEDS: DEXT 5%/0.45% NACL 1000ML 1,000 ML IV SCH (17:03)
[2022-07-05] MEDS: DAPTOMYCIN 750 MG in SODIUM CHLORIDE 0.9% 50 ML IV SCH (17:04)
[2022-07-05 20:00] VITALS: BP 100/62
[2022-07-05] MEDS: MIRTAZAPINE 15MG TABLET PO SCH (20:45)
[2022-07-06] VITALS (7 sets, daily range): BP systolic 97–155; BP diastolic 56–78
[2022-07-06] MEDS: GABAPENTIN 300MG CAPSULE PO SCH ×3 (04:40→21:10)
[2022-07-06] MEDS: BLOOD SUGAR DIAGNOSTIC STRIP TEST SCH ×4 (04:41→21:09)
[2022-07-06] MEDS: INSULIN LISPRO 100 UNITS/ML SUBCUT SCH ×4 (04:41→21:00)
[2022-07-06] MEDS: MEROPENEM 1,000 MG in SODIUM CHLORIDE 0.9% 100 ML IV SCH ×3 (05:29→21:10)
[2022-07-06] MEDS: ASPIRIN 81MG TABLET PO SCH (08:27)
[2022-07-06] MEDS: MIDODRINE HCL 5MG TABLET PO SCH ×3 (08:27→17:14)
[2022-07-06] MEDS: PANTOPRAZOLE SODIUM 40 MG/VIAL IV SCH (08:27)
[2022-07-06] MEDS: TAMSULOSIN HCL 0.4MG SR CAPSULE PO SCH (08:28)
[2022-07-06] MEDS: OXYCODONE HCL 5MG TABLET PO PRN ×2 (08:37→17:14)
[2022-07-06] MEDS ORDERED: HYDROCODONE/ACETAMINOPHEN 10/325MG TABLET PO PRN (11:45)
[2022-07-06] MEDS ORDERED: INSLIS SUBCUT (12:39)
[2022-07-06] MEDS ORDERED: MIRT-89 PO (12:39)
[2022-07-06] MEDS ORDERED: HYDR-4009 PO (12:39)
[2022-07-06] MEDS ORDERED: TAMS-11 PO (12:39)
[2022-07-06] MEDS ORDERED: MIDO5TAB4 PO (12:39)
[2022-07-06] MEDS ORDERED: ASPI-1160 PO (12:39)
[2022-07-06] MEDS ORDERED: METH-773 PO (12:39)
[2022-07-06] MEDS ORDERED: GABA-532 PO (12:39)
[2022-07-06 13:09] LABS: CHLORIDE 114 mEq/L (98-107)
[2022-07-06 13:11] LABS: BASOPHILS % 0.7 % (0.0-2.0); EOSINOPHILS % 3.8 % (0.0-5.0); HEMATOCRIT. 23.4 % (42.0-52.0); HEMOGLOBIN. 7.7 g/dL (14.0-18.0); LYMPHOCYTES % 24.7 % (20.0-50.0); MEAN CORPUSCULAR HEMOGLOBIN 27.6 pg (28.0-32.0); MEAN CORPUSCULAR VOLUME 83.8 fL (80.0-94.0); MEAN PLATELET VOLUME 6.1 fl (7.4-10.4); MONOCYTES % 10.4 % (2.0-8.0); NEUTROPHILS % 60.4 % (40.0-76.0); PLATELET 360 x1000/uL (130-400); RED CELL DISTRIBUTION WIDTH 16.6 % (11.6-14.6)
[2022-07-06] MEDS: DEXT 5%/0.45% NACL 1000ML 1,000 ML IV SCH (13:32)
[2022-07-06] MEDS: DAPTOMYCIN 750 MG in SODIUM CHLORIDE 0.9% 50 ML IV SCH (17:14)
[2022-07-06] MEDS: MIRTAZAPINE 15MG TABLET PO SCH (21:11)
[2022-07-07] VITALS: BP 135/78
[2022-07-07 04:00] VITALS: BP 134/91
[2022-07-07] MEDS: INSULIN LISPRO 100 UNITS/ML SUBCUT SCH ×4 (05:35→21:00)
[2022-07-07] MEDS: BLOOD SUGAR DIAGNOSTIC STRIP TEST SCH ×4 (05:35→21:13)
[2022-07-07] MEDS: GABAPENTIN 300MG CAPSULE PO SCH ×3 (05:36→21:46)
[2022-07-07] MEDS: MEROPENEM 1,000 MG in SODIUM CHLORIDE 0.9% 100 ML IV SCH ×3 (05:36→21:44)
[2022-07-07 07:55] VITALS: BP 115/72
[2022-07-07] MEDS: PANTOPRAZOLE SODIUM 40 MG/VIAL IV SCH (08:11)
[2022-07-07] MEDS: TAMSULOSIN HCL 0.4MG SR CAPSULE PO SCH (08:11)
[2022-07-07] MEDS: ASPIRIN 81MG TABLET PO SCH (08:11)
[2022-07-07] MEDS: MIDODRINE HCL 5MG TABLET PO SCH ×3 (08:12→16:42)
[2022-07-07] MEDS: OXYCODONE HCL 5MG TABLET PO PRN ×3 (08:12→21:45)
[2022-07-07] MEDS: DEXT 5%/0.45% NACL 1000ML 1,000 ML IV SCH (08:13)
[2022-07-07 11:46] VITALS: BP 126/67
[2022-07-07 15:28] VITALS: BP 139/69
[2022-07-07] MEDS: DAPTOMYCIN 750 MG in SODIUM CHLORIDE 0.9% 50 ML IV SCH (16:48)
[2022-07-07 17:03] LABS: BASOPHILS % 0.5 % (0.0-2.0); EOSINOPHILS % 5.4 % (0.0-5.0); HEMATOCRIT. 23.7 % (42.0-52.0); HEMOGLOBIN. 7.4 g/dL (14.0-18.0); LYMPHOCYTES % 27.9 % (20.0-50.0); MEAN CORPUSCULAR HEMOGLOBIN 27.1 pg (28.0-32.0); MEAN CORPUSCULAR VOLUME 86.5 fL (80.0-94.0); MEAN PLATELET VOLUME 6.8 fl (7.4-10.4); MONOCYTES % 11.3 % (2.0-8.0); NEUTROPHILS % 54.9 % (40.0-76.0); PLATELET 351 x1000/uL (130-400); RED BLOOD CELL COUNT 2.74 mill/uL (4.7-6.1); RED CELL DISTRIBUTION WIDTH 16.8 % (11.6-14.6)
[2022-07-07 17:16] LABS: CHLORIDE 114 mEq/L (98-107)
[2022-07-07 20:00] VITALS: BP 132/92
[2022-07-07] MEDS: MIRTAZAPINE 15MG TABLET PO SCH (21:46)
[2022-07-08] VITALS (7 sets, daily range): BP systolic 112–157; BP diastolic 62–81
[2022-07-08] MEDS: MEROPENEM 1,000 MG in SODIUM CHLORIDE 0.9% 100 ML IV SCH ×3 (05:57→22:00)
[2022-07-08] MEDS: GABAPENTIN 300MG CAPSULE PO SCH ×3 (05:57→21:35)
[2022-07-08] MEDS: DEXT 5%/0.45% NACL 1000ML 1,000 ML IV SCH (05:57)
[2022-07-08] MEDS: BLOOD SUGAR DIAGNOSTIC STRIP TEST SCH ×4 (05:57→20:22)
[2022-07-08] MEDS: OXYCODONE HCL 5MG TABLET PO PRN ×3 (06:05→21:46)
[2022-07-08] MEDS: INSULIN LISPRO 100 UNITS/ML SUBCUT SCH ×4 (06:37→20:22)
[2022-07-08] MEDS: PANTOPRAZOLE SODIUM 40 MG/VIAL IV SCH (09:29)
[2022-07-08] MEDS: ASPIRIN 81MG TABLET PO SCH (09:35)
[2022-07-08] MEDS: TAMSULOSIN HCL 0.4MG SR CAPSULE PO SCH (09:35)
[2022-07-08] MEDS: MIDODRINE HCL 5MG TABLET PO SCH ×3 (09:43→17:00)
[2022-07-08] MEDS: DAPTOMYCIN 750 MG in SODIUM CHLORIDE 0.9% 50 ML IV SCH (17:45)
[2022-07-08 21:01] LABS: HEMATOCRIT 25.9 % (42.0-52.0); HEMOGLOBIN 8.4 g/dL (14.0-18.0); MEAN CORPUSCULAR HEMOGLOBIN 27.2 pg (28.0-32.0); MEAN CORPUSCULAR VOLUME 84.1 fL (80.0-94.0); PLATELET 378 x1000/uL (130-400); RED BLOOD CELL COUNT 3.08 mill/uL (4.7-6.1); RED CELL DISTRIBUTION WIDTH 16.8 % (11.6-14.6)
[2022-07-08 21:18] LABS: CHLORIDE 111 mEq/L (98-107)
[2022-07-08] MEDS ORDERED: POTASSIUM CHLORIDE 20MEQ TABLET SR PO NR (21:30)
[2022-07-08] MEDS: MIRTAZAPINE 15MG TABLET PO SCH (21:35)
[2022-07-09] VITALS: BP 133/66
== END 2022-07-09 01:13 | disposition home health service (06) | DRG 720 ==
LOC: ER 12:50 → CVICU 17:15 → ENRESERV 18:04 → 8WST 06-23 23:21
PROVIDERS: ADMIT Internal Medicine; ATTEND Internal Medicine
PROC: 5A2204Z Restoration of Cardiac Rhythm, Single (ICD-10-PCS; 2022-06-13)
PROC: 05H533Z Insertion of Infusion Device into Right Subclavian Vein, Percutaneous Approach (ICD-10-PCS; principal; 2022-06-18)
PROC: B546ZZA Ultrasonography of Right Subclavian Vein, Guidance (ICD-10-PCS; 2022-06-18)
PROC: 05H733Z Insertion of Infusion Device into Right Axillary Vein, Percutaneous Approach (ICD-10-PCS; 2022-06-20)
PROC: B54MZZA Ultrasonography of Right Upper Extremity Veins, Guidance (ICD-10-PCS; 2022-06-20)
PROC: 30233N1 Transfusion of Nonautologous Red Blood Cells into Peripheral Vein, Percutaneous Approach (ICD-10-PCS; 2022-06-25)
PROC: 02HV33Z Insertion of Infusion Device into Superior Vena Cava, Percutaneous Approach (ICD-10-PCS; 2022-07-05)
PROC: B548ZZA Ultrasonography of Superior Vena Cava, Guidance (ICD-10-PCS; 2022-07-05)
PROC: B5181ZA Fluoroscopy of Superior Vena Cava using Low Osmolar Contrast, Guidance (ICD-10-PCS; 2022-07-05)
DX: A41.51 Sepsis due to Escherichia coli [E. coli] (principal); I50.23 Acute on chronic systolic (congestive) heart failure; G93.40 Encephalopathy, unspecified; E43 Unspecified severe protein-calorie malnutrition; I42.8 Other cardiomyopathies; J18.9 Pneumonia, unspecified organism; I11.0 Hypertensive heart disease with heart failure; I47.1 Supraventricular tachycardia; N39.0 Urinary tract infection, site not specified; E11.9 Type 2 diabetes mellitus without complications; D64.9 Anemia, unspecified; T82.868A Thrombosis due to vascular prosthetic devices, implants and grafts, initial encounter; M48.061 Spinal stenosis, lumbar region without neurogenic claudication; L02.01 Cutaneous abscess of face; M27.2 Inflammatory conditions of jaws; R74.01 Elevation of levels of liver transaminase levels; R94.31 Abnormal electrocardiogram [ECG] [EKG]; E78.00 Pure hypercholesterolemia, unspecified; Y83.8 Other surgical procedures as the cause of abnormal reaction of the patient, or of later complication, without mention of misadventure at the time of the procedure; Y92.238 Other place in hospital as the place of occurrence of the external cause; I82.612 Acute embolism and thrombosis of superficial veins of left upper extremity; Z20.822 Contact with and (suspected) exposure to COVID-19; M47.26 Other spondylosis with radiculopathy, lumbar region; Z79.4 Long term (current) use of insulin; Z79.899 Other long term (current) drug therapy; Z90.49 Acquired absence of other specified parts of digestive tract; Z95.0 Presence of cardiac pacemaker; Z88.8 Allergy status to other drugs, medicaments and biological substances; Z68.31 Body mass index [BMI] 31.0-31.9, adult
CPT/HCPCS: 36415; 36573; 70486; 70487; 71045; 71250; 74018; 74177; 76937; 77001; 80048; 80053; 80076; 80202; 80305; 80320; 81003; 82140; 82248; 82270; 82607; 82728; 82746; 82962; 83036; 83540; 83550; 83605; 83880; 84145; 84443; 84484; 85025; 85027; 85044; 86850; 86900; 86920; 87077; 87186; 87389; 87426; 93005; 93306; 93970; 93971; 97110; 97161; 97162; 97165; 99291; C1725; C9113; C9803; J0282; J0295; J0878; J1160; J1170; J1630; J1650; J1815; J1885; J2185; J2250; J2270; J2370; J3010; J3370; J3480; J3490; J7050; J7060; P9016; Q9967; A4315; G0480

== ENCOUNTER 2022-08-21 19:53 | Emergency (ER) | payer MEDICAID ==
[~2022-08-21] VITALS: Ht 175.3 cm; Wt 75.0 kg
[~2022-08-21 19:53] MED LIST changes: +AMI2 PO; +APIX5TAB MT; +ASPI-1160 PO; -CARI350T27 PO; -COR12 PO; -CYAN500T47 PO; +FURO-151 MT; -FURO-151 PO; +GABA-532 PO; -HYDR-3515 PO; +HYDR-4009 PO; +INSLIS SUBCUT; -LOSA25TA26 PO; -METF-874 PO; +METH-773 PO; +MIDO5TAB4 PO; +MIRT-89 PO; -OXYC-582 PO; -PRED5TAB PO; +SPIR25TA MT; +TAMS-11 PO; -ZOLP10TA2 PO
[2022-08-21 23:01] LABS: BASOPHILS % 0.3 % (0.0-2.0); EOSINOPHILS % 3.8 % (0.0-5.0); HEMATOCRIT. 30.7 % (42.0-52.0); LYMPHOCYTES % 22.8 % (20.0-50.0); MEAN CORPUSCULAR HEMOGLOBIN 29.1 pg (28.0-32.0); MEAN CORPUSCULAR VOLUME 89.1 fL (80.0-94.0); MEAN PLATELET VOLUME 7.6 fl (7.4-10.4); MONOCYTES % 6.1 % (2.0-8.0); PLATELET 147 x1000/uL (130-400); RED BLOOD CELL COUNT 3.44 mill/uL (4.7-6.1); RED CELL DISTRIBUTION WIDTH 21.3 % (11.6-14.6)
[2022-08-21 23:04] LABS: CHLORIDE 105 mEq/L (98-107)
[2022-08-22] MEDS ORDERED: HYDROCODONE/ACETAMINOPHEN 5/325MG TABLET PO ONE (01:15)
[2022-08-22 05:31] VITALS: BP 123/85
== END 2022-08-22 13:38 | disposition home or self-care (01) ==
LOC: ER 19:53
DX: J18.9 Pneumonia, unspecified organism (principal); J90 Pleural effusion, not elsewhere classified; I10 Essential (primary) hypertension; I11.0 Hypertensive heart disease with heart failure; I50.9 Heart failure, unspecified; J44.9 Chronic obstructive pulmonary disease, unspecified; E78.00 Pure hypercholesterolemia, unspecified; Z20.822 Contact with and (suspected) exposure to COVID-19; Z90.49 Acquired absence of other specified parts of digestive tract; Z95.0 Presence of cardiac pacemaker; Z79.4 Long term (current) use of insulin; Z88.8 Allergy status to other drugs, medicaments and biological substances
CPT/HCPCS: 36415; 71045; 80053; 83605; 83880; 84484; 85025; 87426; 93005; 99285; C9803

== ENCOUNTER 2022-09-03 20:50 | Emergency (ER) | payer MEDICAID ==
[~2022-09-03] VITALS: Ht 177.8 cm; Wt 75.0 kg
[2022-09-03] MEDS ORDERED: KETOROLAC 30MG/ML VIAL IV STA (22:44)
[2022-09-04 00:14] LABS: BASOPHILS % 0.2 % (0.0-2.0); EOSINOPHILS % 3.2 % (0.0-5.0); HEMATOCRIT. 30.7 % (42.0-52.0); HEMOGLOBIN. 9.9 g/dL (14.0-18.0); LYMPHOCYTES % 23.4 % (20.0-50.0); MEAN CORPUSCULAR VOLUME 89.9 fL (80.0-94.0); MEAN PLATELET VOLUME 6.4 fl (7.4-10.4); MONOCYTES % 8.2 % (2.0-8.0); PLATELET 174 x1000/uL (130-400); RED BLOOD CELL COUNT 3.41 mill/uL (4.7-6.1); RED CELL DISTRIBUTION WIDTH 19.2 % (11.6-14.6)
[2022-09-04 00:19] LABS: CHLORIDE 104 mEq/L (98-107)
[2022-09-04] MEDS ORDERED: HYDROCODONE/ACETAMINOPHEN 10/325MG TABLET PO ONE (01:00)
[2022-09-04] MEDS ORDERED: HYDROCODONE/ACETAMINOPHEN 10/325MG TABLET PO NR (03:15)
[2022-09-04 10:00] VITALS: BP 116/64
== END 2022-09-04 10:25 | disposition home or self-care (01) ==
LOC: ER 20:50
DX: L89.152 Pressure ulcer of sacral region, stage 2 (principal); I11.0 Hypertensive heart disease with heart failure; I50.9 Heart failure, unspecified; J44.9 Chronic obstructive pulmonary disease, unspecified; E11.9 Type 2 diabetes mellitus without complications; E78.00 Pure hypercholesterolemia, unspecified
CPT/HCPCS: 36415; 80053; 83605; 84145; 85025; 87040; 96374; 99285; J1885